=== PATIENT | male | born 1940 | race Caucasian/White ===

== ENCOUNTER 2022-06-08 07:18 | Observation (INO) ==
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
[~2022-06-08 07:18] MED LIST: LR 15ML/HR IV SCH; SUGAMMADEX SODIUM 200 MG/2 ML VIAL IV ONE; ceFAZolin 2000MG 2,000 MG/15 ML SYR IV SCH
[2022-06-08] MEDS ORDERED: DEXAMETHASONE SOD INJ 4 MG/ML VIAL ONE (07:36)
[2022-06-08] MEDS ORDERED: ONDANSETRON INJ 2 MG/ML 2 ML VIAL ONE (07:36)
[2022-06-08] MEDS ORDERED: fentaNYL citrate 100 MCG/2 ML VIAL ONE ×2 (07:36→09:48)
[2022-06-08] MEDS ORDERED: ROCURONIUM BROMIDE 10 MG/ML 5 ML VIAL IV ONE ×3 (07:36→10:15)
[2022-06-08] MEDS ORDERED: PROPOFOL IV EMULSION 10 MG/ML 20 ML VIAL IV ONE (07:36)
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
[2022-06-08] MEDS ORDERED: ATROPINE SULFATE 0.1 MG/ML 10ML SYR IV PRN (08:06)
[2022-06-08] MEDS ORDERED: ONDANSETRON INJ 2 MG/ML 2 ML VIAL IV PRN ×2 (08:06→12:18)
[2022-06-08] MEDS ORDERED: ePHEDrine sulfate 50 MG/ML AMP IV PRN (08:06)
[2022-06-08] MEDS ORDERED: BUPIVACAINE/EPINEPHRINE 0.5% MPF 1:200,000 30 ML VIAL ONE (08:20)
[2022-06-08] MEDS ORDERED: PHENYLEPHRINE HCL 10 MG/ML VIAL ONE (08:50)
[2022-06-08] MEDS: fentaNYL citrate 100 MCG/2 ML VIAL IV PRN ×4 (10:37→10:52)
[2022-06-08] MEDS ORDERED: HYDROmorphone INJ 1 MG/ML SYRINGE IV PRN (10:52)
[2022-06-08] MEDS ORDERED: ACETAMINOPHEN 1,000 MG/100 ML VIAL IV STA (10:52)
[2022-06-08] MEDS ORDERED: KETOROLAC 30 MG/ML VIAL IV PRN (10:52)
[2022-06-08] MEDS ORDERED: PROMETHAZINE HCL 6.25 MG in SODIUM CHLORIDE 0.9% 50 ML IV PRN (10:54)
[2022-06-08] MEDS ORDERED: ACETAMINOPHEN 1000 MG/100 ML IV IV ONE (10:57)
[2022-06-08] MEDS ORDERED: SODIUM CHLORIDE 0.9% 50 ML BAG ONE (10:57)
[2022-06-08] MEDS ORDERED: PROMETHAZINE HCL INJ 25 MG/ML 1 ML VIAL ONE (10:57)
[2022-06-08] MEDS ORDERED: KETOROLAC 30 MG/ML VIAL ONE (10:58)
--- NOTE | 2022-06-08 10:59 | Operative Report ---
PG Post Operative Report Pre & Post Diagnosis Operation Date: 06/08/22 08:45 Pre-Op Diagnosis: Recurrent Incisional Hernia Post-Op Diagnosis: Recurrent Incisional Hernia ;adhesions I identified the patient and participated in the time-out.: Yes Procedure Operation Date: 06/08/22 08:45 Actual Procedures p Laparoscopic Recurrent Incisional Hernia Repair with Mesh(Not Applicable);extensive enterolysis - Aj Chappell DO Surgeon Aj Chappell DO Database Designer alan Caraballo Estimated Blood Loss 10 Findings Consistent with Post-Op Diagnosis Specimens none Description of Procedure After informed consent was obtained the patient was taken to the operating room and placed in supine position. After successful intubation the abdomen was sterilely prepped and draped in usual fashion. I began with a left upper quadrant incision with an 11 blade scalpel. This was carried down through the soft tissue using cautery. Anterior fascia was opened using cautery and two #0 Vicryl stay sutures were placed. Peritoneum was elevated with hemostats and incised under direct vision using a Metzenbaum scissor. Finger sweep was performed. A 12 mm [place] trocar was placed and the abdomen insufflated to 18 mmHg. Laparoscope was inserted and the abdomen examined 360 degrees. There were a lot of adhesions on his midline incision including the region of the hernia. I ended up placing a left lower quadrant 5 mm trocar a left mid abdominal 5 mm trocar a right upper quadrant 5 mm trocar and a right mid abdominal 5 mm trocar under direct vision. The majority of the case was spent tediously taking down adhesions laparoscopically involving primarily small bowel. We used the harmonic scalpel for some of the omental adhesions and then primarily blunt dissection with small amounts of sharp scissor lysis to take the bowel off of the prior mesh. Eventually we were able to get all of the adhesions down. The recurrent hernia was approximately 3 cm in diameter. After reducing the contents we rolled a 10 cm surgimesh rolled it and inserted it through the camera port site. A small incision was made directly over the central portion of the hernia and a fascial closure device advanced through it. The central Prolene stitches on the circular mesh were grasped and used to pull the mesh up to the undersurface of the fascia. This overlapped the hernia defect for several centimeters in all directions. We secured the mesh using a Reliatack device with the long tacks. We did have to use several pro tacks to go through the areas where the new mesh and old mesh overlapped. We tied the central Prolene stitch as well. The mesh laid nice and flat and tension-free and the repair looked good. No other abnormalities were seen. I did run the bowel and paid special attention to the area where we had taken down adhesions. There was some small serosal abrasions but I did not see any evidence of a through and through enterotomy. All the trochars were removed and the abdomen desufflated. The fascia of the camera port was closed using 0 Vicryl in a running fashion. It was also closed with 3-0 Vicryl and 4-0 Monocryl. All the small incisions were closed using 4-0 Monocryl. Arcane with epinephrine was injected around the incision for postoperative analgesia and skin glue used as a dressing. Patient was awakened extubated and transferred recovery in stable condition. My physician architectural administrative assistant was present through the entire case. She was instrumental in assisting with running the camera as well as helping with mesh placement wound closure and dressing placement. I attest to the content of the Intraoperative Record and any orders documented therein. Any exceptions are noted below.
--- NOTE | 2022-06-08 11:49 | Anesthesiology Progress Note ---
Date of Service June 08, 2022 Anesthesia Post Procedure Vital Signs Vital Signs: Temp Pulse Pulse Resp BP Pulse Ox O2 Del Method 06/08/22 11:15 104 H 19 133/67 97 Nasal Cannula 06/08/22 11:05 103 H 19 126/72 95 Nasal Cannula 06/08/22 10:55 105 H 21 130/92 96 Oxymask 06/08/22 11:35 97.0 F L 101 H 18 94/70 L 95 Nasal Cannula 06/08/22 11:25 99 H 19 116/48 L 94 Nasal Cannula 06/08/22 10:45 105 H 19 137/87 98 Oxymask 06/08/22 10:36 96.8 F L 98 H 23 145/84 H 93 Oxymask 06/08/22 07:48 98.2 F 86 21 139/87 94 Room Air O2 Flow Rate 06/08/22 11:15 4 06/08/22 11:05 4 06/08/22 10:55 12 06/08/22 11:35 4 06/08/22 11:25 4 06/08/22 10:45 12 06/08/22 10:36 12 06/08/22 07:48 Transfer of Care Handoff Completed per policy Notes Mental Status: alert / awake / arousable and participated in evaluation Patient Amnestic to Procedure: Yes Nausea / Vomiting: improving with treatment Pain: adequately controlled and improving with treatment Airway Patency, RR, SpO2: stable & adequate BP & HR: stable & adequate Hydration State: stable & adequate Anesthetic Complications: no major complications apparent and Pt Satisfied with anesthetic care Notes: Patient complaining of pain, given fentanyl, ketorolac and tylenol as well as 0.5 of dilaudid, patient able to sleep soundly, however when wakes up asks for "help". unable to describe pain or rate pain just states it "hurts". Patient appropriate for signout of Phase 1
[2022-06-08] MEDS: LACTATED RINGER'S 1,000 ML IV SCH (12:00)
[2022-06-08] MEDS ORDERED: HYDROCODONE/ACETAMOPHEN 5/325MG TAB PO PRN (12:18)
[2022-06-08] MEDS ORDERED: ACETAMINOPHEN 325 MG TAB PO PRN (12:18)
[2022-06-08] MEDS: HYDROCODONE/ACETAMOPHEN 5/325MG TAB PO PRN (16:28)
[2022-06-08] MEDS: ONDANSETRON INJ 2 MG/ML 2 ML VIAL IV PRN ×2 (19:08→21:57)
[2022-06-08] MEDS: TAMSULOSIN HCL 0.4 MG CAP PO SCH (20:00)
[2022-06-08] MEDS: HYDROmorphone INJ 0.5 MG/0.5 ML SYR IV PRN (21:58)
[2022-06-08 22:41] LABS: Basophils # (auto) 0.02 K/uL (0-0.2); Basophils % (auto) 0.2 %; Hematocrit (blood only) 36.2 % (40.1-51.0); Hemoglobin 12.3 g/dl (14.0-18.0); Immature Granulocytes # (auto) 0.04 K/uL (0.00-0.02); Immature Granulocytes % (auto) 0.3 %; Lymphocytes % (auto) 4.4 %; Mean Corpuscular Hemoglobin 31.9 pg (25.0-34.0); Mean Platelet Volume 9.4 fL (9.4-12.4); Neutrophils # (auto) 10.09 K/uL (1.4-6.5); Neutrophils % (auto) 88.1 %; Platelet Count 280 K/uL (130-400); RDW Coefficient of Variation 12.8 % (11.5-14.5); RDW Standard Deviation 43.8 fL (36.4-46.3); Red Blood Count 3.85 M/uL (4.63-6.08); White Blood Count 11.45 K/ul (4.8-10.8)
[2022-06-08 22:54] LABS: Potassium 4.3 mmol/L (3.5-5.1)
[2022-06-08 23:00] LABS: BUN Creatinine Ratio 22.2 (10-20); Creatinine Clr Calc Pharmacy 88.3 ml/min; Est GFR (African American) 101.4 ml/min; Est GFR (Non-African American) 87.5 ml/min
--- NOTE | 2022-06-08 23:09 | Communication Note ---
Date of Service: June 08, 2022 Earlier today this patient underwent a laparoscopic recurrent incisional hernia repair with mesh and extensive enterolysis of adhesions by Dr. Chappell. I was called by RN that patient had approximate 250 cc emesis of what appeared to be somewhat bloody emesis. Patient received Zofran and was complaining of 10 out of 10 abdominal pain. This call was placed by RN at approximately 10:01 PM. Initial orders were placed for a KUB and labs and I arrived at the bedside to evaluate the patient within 5 minutes. KUB was reviewed and showed dilated loops of bowel and small bowel along with a large gastric bubble. There did not appear to be any discrete free air. These findings were concerning for postoperative ileus. Stat laboratories were drawn where her CBC revealed white blood cell count was 11.45. Hemoglobin and hematocrit were 12.3 and 36.2 with a normal platelet count. Chemistry profile showed sodium, potassium, BUN, creatinine were all normal. Patient's vitals were reviewed and his blood pressure is 155/86 with a heart rate of 90. Respirations were 19 and nonlabored and he was afebrile. Pulse ox is 95% on 3 L. On exam the patient's abdomen was noted to be mildly to moderately distended. His abdomen was slightly tympanic to percussion. Bowel sounds were hypoactive. All of his incisions were clean, dry, and intact without any drainage. The patient did have appropriate tenderness near his surgical incisions. The patient's emesis was examined and appeared to be black/with a red tinge. Due to these events as noted a KUB was performed along with labs as noted above. In addition due to the concern for potential bloody emesis the patient was administered Protonix. He was previously taking aspirin which was discontinued. I suspect the patient may have an element of a postoperative ileus. We will continue to treat him symptomatically. If he continues to have further emesis we may need to consider placing an NG tube. I discussed the above with my attending physician Dr. Montoya who agrees with the above plan. If patient shows any further clinical deterioration additional measures will be taken but we will monitor him closely for the present time
[2022-06-08] MEDS: PANTOprazole 40 MG in SYRINGE 0 ML IV SCH (23:18)
[2022-06-09] MEDS: HYDROmorphone INJ 0.5 MG/0.5 ML SYR IV PRN ×2 (00:08→07:43)
[2022-06-09] MEDS: LACTATED RINGER'S 1,000 ML IV SCH (00:22)
--- NOTE | 2022-06-09 07:26 | XRay Report ---
XR KUB/Abdomen 1 view CLINICAL HISTORY: abdominal pain TECHNIQUE: 1 view of the abdomen was obtained. Comparison: Comparison is made to abdomen radiograph 05/22/2022 FINDINGS: Hernia repair mesh is seen. Degenerative changes are seen in the visualized skeleton. Interval increa sed gaseous distention of multiple loops of small bowel. A moderate amount of stool is noted within t he large bowel. IMPRESSION: Interval increase in distention of a few loops of small bowel which may be physiologic or represent m ild ileus. ACT 112: Negative or not required by law. Electronically signed by: Carlos Payton M.D. 06/09/2022 7:25 AM
[2022-06-09] MEDS: PANTOprazole 40 MG in SYRINGE 0 ML IV SCH ×2 (07:44→20:30)
[2022-06-09] MEDS: FLUoxetine HCL 20 MG CAP PO SCH (07:44)
[2022-06-09 07:58] LABS: Basophils # (auto) 0.01 K/uL (0-0.2); Basophils % (auto) 0.1 %; Eosinophils # (auto) 0.01 K/uL (0-0.50); Eosinophils % (auto) 0.1 %; Hematocrit (blood only) 34.9 % (40.1-51.0); Hemoglobin 11.6 g/dl (14.0-18.0); Immature Granulocytes # (auto) 0.06 K/uL (0.00-0.02); Immature Granulocytes % (auto) 0.6 %; Lymphocytes # (auto) 0.61 K/uL (1.2-3.4); Mean Corpuscular Hemoglobin 31.8 pg (25.0-34.0); Mean Corpuscular Hgb Conc 33.2 g/dL (32.0-36.0); Mean Corpuscular Volume 95.6 fL (80.0-100.0); Mean Platelet Volume 9.5 fL (9.4-12.4); Monocytes # (auto) 1.03 K/uL (0.24-0.82); Monocytes % (auto) 10.1 %; Neutrophils # (auto) 8.43 K/uL (1.4-6.5); Neutrophils % (auto) 83.1 %; Platelet Count 269 K/uL (130-400); RDW Coefficient of Variation 12.9 % (11.5-14.5); RDW Standard Deviation 45.5 fL (36.4-46.3); Red Blood Count 3.65 M/uL (4.63-6.08); White Blood Count 10.15 K/ul (4.8-10.8)
[2022-06-09] MEDS ORDERED: ASPIRIN 81 MG ECTAB PO SCH (09:00)
[2022-06-09 10:03] LABS: BUN Creatinine Ratio 19.7 (10-20); Calcium 9.1 mg/dl (8.5-10.1); Creatinine Clr Calc Pharmacy 83.7 ml/min; Est GFR (African American) 99.2 ml/min; Est GFR (Non-African American) 85.6 ml/min; Potassium 4.5 mmol/L (3.5-5.1)
--- NOTE | 2022-06-09 13:55 | Surgery Progress Note ---
Date of Service June 09, 2022 Assessment & Plan (1) History of incisional hernia repair: Plan: Postoperative day #1. Doing well. Will increase his diet today. Possible discharge tomorrow if he continues to do well. Dr. Mcknight covering for the weekend. Admission and Anticipated Discharge Date Admission Date: June 08, 2022 Subjective Patient seen. Feeling much better today. Tolerating his liquid diet. His pain and nausea are much improved Physical Exam Physical Exam: Alert. No acute distress Not ill-appearing Abdomen is soft with expected tenderness. His incisions look good. Results & Data ([facility]) Vital Signs (Past 12 Hours) Vital Signs Temp Pulse Resp BP Pulse Ox O2 Del Method O2 Flow Rate 06/09/22 07:58 36.7 C 85 16 114/71 91 Room Air 06/09/22 07:58 36.7 C 85 16 114/71 91 Room Air 06/09/22 02:00 36.7 C 87 18 152/78 H 95 Nasal Cannula 3 PG Care Time/CCT Total # of Minutes Spent Total Time Spent with Patient: Total time spent is greater than 50% in coordination of care (as documented) at patient's floor/unit and/or counseling patient: Coding Level of Care Code 97853 Post Operative Follow-Up Diagnoses History of incisional hernia repair Z98.890; Z87.19
[2022-06-09] MEDS: ATORVASTATIN 10 MG TAB PO SCH (20:29)
[2022-06-09] MEDS: TAMSULOSIN HCL 0.4 MG CAP PO SCH (20:30)
[2022-06-09 22:22] VITALS: TEMP 97.7
[2022-06-10 08:12] VITALS: BP 122/74; PULSE 89; O2SAT 96
[2022-06-10] MEDS: HYDROCODONE/ACETAMOPHEN 5/325MG TAB PO PRN (08:22)
[2022-06-10] MEDS: FLUoxetine HCL 20 MG CAP PO SCH (08:24)
[2022-06-10] MEDS: ATORVASTATIN 10 MG TAB PO SCH (08:24)
[2022-06-10] MEDS: PANTOprazole 40 MG in SYRINGE 0 ML IV SCH (08:24)
--- NOTE | 2022-06-10 13:18 | Surgery Progress Note ---
Date of Service June 10, 2022 Assessment & Plan (1) History of incisional hernia repair: Plan: POD #2 incisional hernia repair with extensive MARCOS with Dr. Chappell. Ed is doing well. His pain is controlled. He is tolerating a low fiber diet. He feels that he is ready for discharge. Discharge instructions reviewed with patient by Dr. Mcknight. Return precautions reviewed. Ed is aware that he is to continue to wear his abdominal binder. He is to follow-up with Dr. Chappell in the next 1-2 weeks. Discharge order placed. Patient seen and examined with Dr. Mcknight. Admission and Anticipated Discharge Date Admission Date: June 08, 2022 Supervising Physician Co-Signing Physician Notes Patient seen examined, agree with above. POD #2 lap MARCOS and ventral hernia repair, doing well. Advance diet, DC to home, follow-up with Dr. Chappell as scheduled. Wound care instructions, activity restrictions, return precautions given. Subjective Ed is resting comfortably in bed with family member at bedside. He is feeling very good. He denies pain and is tolerating a low fiber diet. Review of Systems Constitutional: no fever and no chills Respiratory: no cough, no chest congestion and no dyspnea Gastrointestinal: no abdominal pain, no nausea and no vomiting Physical Exam Constitutional: WD/WN, vitals as above Respiratory: normal respiratory effort; no respiratory distress and no labored breathing Gastrointestinal (Abdomen): Abdominal incisions are clean, dry, intact with Dermabond in place. No signs of active bleeding or infection on exam. Abdominal binder reattached. Results & Data ([facility]) Vital Signs (Past 12 Hours) Vital Signs Temp Pulse Resp BP Pulse Ox O2 Del Method 06/10/22 07:50 36.5 C 89 18 122/74 96 Room Air PG Care Time/CCT Total # of Minutes Spent Total Time Spent with Patient: Total time spent is greater than 50% in coordination of care (as documented) at patient's floor/unit and/or counseling patient: Coding Level of Care Code 20382 Post Operative Follow-Up Diagnoses History of incisional hernia repair Z98.890; Z87.19
--- NOTE | 2022-06-13 08:28 | Discharge Summary ---
Date of Service June 10, 2022 Admission HPI Per Admitting Provider Roberto is here for repair of an incisional hernia. 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 He has developed an incisional hernia at the inferior pole. There is been no changes to his health history since I had seen him last. Principal Diagnosis incisional hernia repair Discharge Exam awake/alert, no distress Gastrointestinal (Abdomen) Inspection/Auscultation: + abdominal surgical incision (c/d/i with skin glue) Percussion/Palpation: abdomen soft Discharge Data Allergies Allergy/AdvReac Type Severity Reaction Status Date / Time morphine Allergy Intermediate HIVES Verified 06/08/22 07:44 tobramycin Allergy Intermediate HIVES Verified 06/08/22 07:44 midazolam Allergy Mild RASH Verified 06/08/22 07:44 oxycodone Allergy Mild RASH Verified 06/08/22 07:44 codeine Allergy Unknown unsure of Verified 06/08/22 07:44 reaction Procedures Performed Operation Date: 06/08/22 08:45 Actual Procedures p Laparoscopic Recurrent Incisional Hernia Repair with Mesh(Not Applicable) - Aj Chappell, DO Hospital Course (1) History of incisional hernia repair: This is an 81yM who presented to the [facility] on 1// for an elective procedure with Dr. Chappell. The patient underwent a laparoscopy with extensive lysis of adhesions, including a ventral hernia repair with mesh. The patient tolerated the procedure well, see op note for full details. Given the extensive lysis of adhesions the patient was admitted under observation. He was started on a clear liquid diet and pain controlled with prn medication. In the evening patient did have a small bout of emesis which was managed with prn medications. On POD#1 the patient was doing well and diet advanced as tolerated. No further bouts of nausea/emesis. Activity and pulmonary toilet were encouraged. Pain controlled on prn medication. On POD#2 the patient continued to do well and was discharged to home. He was instructed to continue to wear his abdominal binder and to follow up in clinic with Dr. Chappell within 2 weeks. Total Time Total Time Spent Total Time Spent (In Minutes): 10 Discharge Plan Discharge Items Patient Disposition: Home - Self-Care Reason For Visit: Recurrent Incisional Hernia Discharge Diagnosis: incisional hernia repair Activity: Per Instructions section Lifting: No more than 10 pounds Bathing Comment: may shower starting 06/09/22; no soaking in tubs/pools Exercise/Sports: Wait until after follow-up appointment Driving/Machine Use: no driving while taking any narcotics for pain Non-emergency contact: Surgeon Call non-emergency contact if: you have any medication questions, your symptoms worsen, your pain is not controlled, your pain is concerning for you, you have a fever, your temperature is above 101.5, your wound has increased redness, your wound has increased drainage and your wound pain has increased Follow-up/Referrals: Aj Chappell DO [Surgeon] - (Please call to schedule follow up in clinic within 2 weeks) Brigitte Lance DO [Primary Care Provider] - Diet: Regular Addtl Attending Provider Instructions: Please continue to wear your abdominal binder until follow up with Dr. Chappell. You may remove it for periods of time to take a break as needed and shower. Pending Studies at Discharge: No Stand-Alone Forms: My [facility] Medications and DC Order Prescriptions: New hydrocodone-acetaminophen 5-325 mg tablet 1 - 2 tab PO .q4h- q6h PRN (Reason: pain, for initial therapy, max 6 tabs per day ) Qty: 15 0RF Continued atorvastatin 10 mg tablet 10 mg PO QAM aspirin 81 mg Tablet,Delayed Release (Dr/Ec) 81 mg PO QAM Rx Instructions: CURRENTLY ON HOLD FOR SURGERY multivitamin [Multiple Vitamins] Tablet 1 tab PO QAM [id number] [Citracal-D3 Maximum Plus] 325 mg-12.5 mcg -2.75 mg Tablet 2 tab PO QAM tamsulosin 0.4 mg capsule 0.4 mg PO HS Qty: 30 0RF fluoxetine [Prozac] 40 mg capsule 40 mg PO QAM ondansetron 4 mg tablet,disintegrating 4 mg PO Q6H PRN (Reason: nausea and vomiting) Qty: 14 0RF Discharge Orders: Discharge Order (Routine); Ordered 06/10/22 Ordered By: Kayleen Mckeon/Other Patient Handouts: After Laparoscopic Hernia Repair Admission Data Admit Date/Time: 06/08/22 10:40 Attending Provider: Aj Chappell Admit Provider: Aj Chappell Primary Care Provider: Grine,Brigitte M Other Interventions: Discharge Summary Assessment (RN) Last Done: 06/10/22 13:32 Coding Level of Care Code HOSP INP/OBS DISCH 30 MIN/LESS Diagnoses History of incisional hernia repair Z98.890; Z87.19
== END 2022-06-10 14:01 | disposition home or self-care (01) ==
LOC: 3N 07:18 → ASU 07:18 → 3N 18:49
DX: Z87.891 Personal history of nicotine dependence; Z88.8 Allergy status to other drugs, medicaments and biological substances; Z79.82 Long term (current) use of aspirin; K43.2 Incisional hernia without obstruction or gangrene; Z79.899 Other long term (current) drug therapy; Z88.5 Allergy status to narcotic agent; Z88.1 Allergy status to other antibiotic agents

== ENCOUNTER 2022-06-25 08:40 | Observation (INO) ==
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
[2022-06-25] MEDS ORDERED: SODIUM CHLORIDE 0.9% 1000ML 1,000 ML IV SCH (09:00)
[2022-06-25] MEDS ORDERED: ONDANSETRON INJ 2 MG/ML 2 ML VIAL IV STA (09:32)
[2022-06-25 09:43] LABS: Basophils # (auto) 0.05 K/uL (0-0.2); Basophils % (auto) 0.7 %; Eosinophils # (auto) 0.23 K/uL (0-0.50); Eosinophils % (auto) 3.1 %; Hemoglobin 13.1 g/dl (14.0-18.0); Immature Granulocytes # (auto) 0.03 K/uL (0.01-0.20); Immature Granulocytes % (auto) 0.4 %; Mean Corpuscular Hemoglobin 31.9 pg (25.0-34.0); Mean Corpuscular Hgb Conc 33.6 g/dL (32.0-36.0); Mean Corpuscular Volume 94.9 fL (80.0-100.0); Mean Platelet Volume 9.3 fL (9.4-12.4); Monocytes # (auto) 0.71 K/uL (0.11-0.59); Monocytes % (auto) 9.4 %; Neutrophils # (auto) 5.61 K/uL (1.40-6.50); Neutrophils % (auto) 74.4 %; Platelet Count 306 K/uL (130-400); RDW Coefficient of Variation 13.1 % (11.5-14.5); RDW Standard Deviation 45.7 fL (36.4-46.3); Red Blood Count 4.11 M/uL (4.70-6.10); White Blood Count 7.53 K/ul (4.8-10.8)
[2022-06-25 09:53] LABS: INR 1.1 (0.9-1.1); Prothrombin Time 11.3 Seconds (9.0-12.0)
--- NOTE | 2022-06-25 10:01 | CT Scan Report ---
CT SCAN OF THE BRAIN WITHOUT IV CONTRAST CLINICAL HISTORY: Syncope. Fall. COMPARISON STUDY: CT of the brain dated 05/22/2022. TECHNIQUE: Unenhanced axial CT scan of the brain is performed from the vertex to the skull base. A do se lowering technique was utilized adhering to the principles of ALARA. CT DOSE: 614.27 mGy.cm FINDINGS: Brain parenchyma: There is age-related involutional change noting moderate subcortical and periventri cular microangiopathic disease. There is no hemorrhage, mass effect, or evidence of acute territorial ischemia by CT criteria. There is a chronic infarct in the right basal ganglia. Mendoza-white matter di fferentiation is preserved. No extra-axial fluid collection is seen. Ventricles, sulci, cisterns: Prominent secondary to involutional change. Intracranial vasculature: There is atherosclerotic calcification of the cavernous carotid and vertebr al arteries. Calvarium: The skeletal structures are osteopenic. No depressed calvarial fracture is seen. Sinuses and mastoids: There is trace mucosal thickening within the maxillary antra. Mild mucosal thic kening is seen in the right frontal sinus and ethmoid sinuses. The mastoid air cells are well pneumat ized. Orbits: The bony orbits are grossly intact. There are bilateral ocular lens implants. IMPRESSION: There is no hemorrhage, mass effect, or evidence of acute territorial ischemia by CT alva meraz. ACT 112: Negative or not required by law. Electronically signed by: Shane Anderson M.D. 06/25/2022 9:59 AM
[2022-06-25 10:06] LABS: Albumin Globulin Ratio 1.3 (0.9-2); Albumin Level 3.9 gm/dl (3.4-5.0); Bilirubin,Total 0.8 mg/dl (0.2-1.0); Calcium 9.6 mg/dl (8.5-10.1); Creatinine Clr Calc Pharmacy 84.8 ml/min; Est GFR (African American) 99.7 ml/min; Globulin 2.9 gm/dl (2.5-4.0); Magnesium 2.2 mg/dl (1.7-2.4); Potassium 3.9 mmol/L (3.5-5.1); Total Protein 6.8 gm/dl (6.0-8.3)
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
--- NOTE | 2022-06-25 10:48 | XRay Report ---
AP CHEST WITH ABDOMINAL SERIES CLINICAL HISTORY: Cough. Vomiting. Generalized abdominal pain FINDINGS: An AP upright chest radiograph is compared to study dated 05/22/2022. The heart is enlarged noting athe rosclerotic calcification of the thoracic. The pulmonary vascular is congested. Chronic interstitial thickening similar to previous. There is mild chronic elevation of the right hemidiaphragm. The lungs and pleural spaces are clear. No pneumothorax is seen. The skeletal structures are osteopenic. The b yinka thorax is grossly intact. Supine and decubitus abdominal radiographs are compared to study dated 06/08/2022. Correlation is made with abdominal CT dated 03/31/2022. Mesh material projects over the central abdomen. There is a nono bstructed abdominal bowel gas pattern. No evidence of intraperitoneal free air is seen. There are no abnormal abdominal calcifications. Small phleboliths are seen in the pelvis. The lumbosacral spine an d bony pelvis appear intact. There is moderate lumbosacral spondylosis. IMPRESSION: 1. Cardiomegaly with no active disease in the chest. 2. Nonobstructed abdominal bowel gas pattern. ACT 112: Negative or not required by law. Electronically signed by: Shane Anderson M.D. 06/25/2022 10:47 AM
--- NOTE | 2022-06-25 10:48 | Electrocardiogram Report ---
Test Reason : Blood Pressure : / mmHG Vent. Rate : 092 BPM Atrial Rate : 092 BPM P-R Int : 126 ms QRS Dur : 080 ms QT Int : 366 ms P-R-T Axes : - 022 degrees QTc Int : 452 ms Poor data quality, interpretation may be adversely affected Normal sinus rhythm Low voltage QRS Poor R wave progression, consider anterior AR vs. lead placement vs. LVH Abnormal ECG When compared with ECG of 22-MAY-2022 09:38, Minimal criteria for Anterior infarct are now Present No significant change was found Confirmed by Mukesh Nolasco ([id number]) on 06/25/2022 10:48:16 AM Referred By: Confirmed By:Mukesh Nolasco
[2022-06-25] MEDS ORDERED: ACETAMINOPHEN 325 MG TAB PO PRN (11:46)
[2022-06-25 12:57] LABS: Vitamin B12 359 pg/ml (180-914)
[2022-06-25] MEDS: THIAMINE HCL 100 MG in SYRINGE 9 ML IV SCH (13:04)
[2022-06-25] MEDS: PANTOprazole 40 MG TAB PO SCH (13:04)
[2022-06-25] MEDS: FOLIC ACID 1 MG TAB PO SCH (13:04)
[2022-06-25] MEDS: ASPIRIN 81 MG ECTAB PO SCH (13:04)
--- NOTE | 2022-06-25 13:07 | Magnetic Resonance Report ---
MRI OF THE BRAIN WITHOUT IV CONTRAST CLINICAL HISTORY: Syncope. Fall. Change in mental status. COMPARISON STUDY: CT of the brain dated 06/25/2022. TECHNIQUE: MRI of the brain was performed utilizing various T1 and T2-weighted sequences in the axial , sagittal, and coronal planes. IV contrast was not administered for this examination. FINDINGS: Brain parenchyma: A chronic infarct is again seen in the right basal ganglia. There is age-related in volutional change noting moderate subcortical and periventricular microangiopathic disease. There is no hemorrhage or mass effect. There is no restricted diffusion to suggest acute ischemia. Mendoza-white matter differentiation is preserved. No extra-axial fluid collection is seen. The cerebellar tonsils are normal in configuration. Ventricles, sulci, and cisterns: Prominent secondary to involutional change. Pituitary and sella: Unremarkable. Intracranial vasculature: Normal flow voids are maintained at the skull base. Orbits: The bony orbits are grossly intact. Orbital contents are normal in appearance noting bilatera l ocular lens implants. Sinuses and mastoids: There is moderate mucosal thickening within the right maxillary antrum and the ethmoid sinuses. The mastoid air cells are clear. Calvarium: Unremarkable. Cervical cord: Partially visualized cervical spinal cord is normal in morphology and signal intensity . IMPRESSION: No acute intracranial abnormality. ACT 112: Negative or not required by law. Electronically signed by: Shane Anderson M.D. 06/25/2022 1:05 PM
[2022-06-25] MEDS: ONDANSETRON INJ 2 MG/ML 2 ML VIAL IV PRN ×2 (16:04→22:58)
[2022-06-25] MEDS: TAMSULOSIN HCL 0.4 MG CAP PO SCH (20:24)
[2022-06-26 03:59] LABS: Appearance Urine Cloudy (Clear); Bacteria Urine Automated Negative (Negative); Bilirubin Urine Negative (Negative); Blood Urine 3+ (Negative); Color Urine Yellow; Glucose Urine UA Negative (Negative); Ketones Urine Negative (Negative); Leukocyte Esterase Urine Trace (Negative); Nitrite Urine Negative (Negative); Protein Urine Trace (Negative); Specific Gravity Urine 1.019 (1.000-1.030); Urobilinogen Urine Negative (Negative)
[2022-06-26 07:35] LABS: Basophils # (auto) 0.04 K/uL (0-0.2); Basophils % (auto) 0.6 %; Eosinophils # (auto) 0.28 K/uL (0-0.50); Eosinophils % (auto) 4.2 %; Hematocrit (blood only) 34.6 % (42.0-52.0); Hemoglobin 11.8 g/dl (14.0-18.0); Immature Granulocytes # (auto) 0.03 K/uL (0.01-0.20); Immature Granulocytes % (auto) 0.4 %; Lymphocytes # (auto) 0.77 K/uL (1.2-3.4); Lymphocytes % (auto) 11.5 %; Mean Corpuscular Hemoglobin 32.5 pg (25.0-34.0); Mean Corpuscular Hgb Conc 34.1 g/dL (32.0-36.0); Mean Corpuscular Volume 95.3 fL (80.0-100.0); Mean Platelet Volume 9.6 fL (9.4-12.4); Monocytes # (auto) 0.64 K/uL (0.11-0.59); Monocytes % (auto) 9.6 %; Neutrophils # (auto) 4.94 K/uL (1.40-6.50); Neutrophils % (auto) 73.7 %; Platelet Count 264 K/uL (130-400); RDW Coefficient of Variation 13.2 % (11.5-14.5); RDW Standard Deviation 46.5 fL (36.4-46.3); Red Blood Count 3.63 M/uL (4.70-6.10)
[2022-06-26] MEDS: PANTOprazole 40 MG TAB PO SCH (08:01)
[2022-06-26 08:02] LABS: BUN Creatinine Ratio 18.2 (10-20); Calcium 9.3 mg/dl (8.5-10.1); Chol HDL Ratio 2.5 (0-5); Creatinine Clr Calc Pharmacy 82.6 ml/min; Est GFR (African American) 98.6 ml/min; Est GFR (Non-African American) 85.1 ml/min; Potassium 4.1 mmol/L (3.5-5.1)
[2022-06-26] MEDS: ASPIRIN 81 MG ECTAB PO SCH (08:02)
[2022-06-26] MEDS: ATORVASTATIN 10 MG TAB PO SCH (08:02)
[2022-06-26] MEDS: FOLIC ACID 1 MG TAB PO SCH (08:02)
[2022-06-26] MEDS: FLUoxetine HCL 20 MG CAP PO SCH (08:02)
[2022-06-26] MEDS: THIAMINE HCL 100 MG in SYRINGE 9 ML IV SCH (08:03)
--- NOTE | 2022-06-26 08:47 | XCELERA ---
[id number]
--- NOTE | 2022-06-26 09:08 | Ultrasound Report ---
US carotid doppler BI CLINICAL HISTORY: 81 years-old Male with dysarthria, hx cva. Acute strokelike symptoms COMPARISON: Brain MRI 06/25/2022 TECHNIQUE: Multiple real time sonographic images of the carotid bifurcations were obtained assessing alex scale, color Doppler and spectral wave form appearance FINDINGS: RIGHT CAROTID: The peak systolic velocity measured within the right ICA is 139 cm/sec. The end marc tolic velocity measured 14 cm/sec. The ICA to CCA ratio measured 1.6 which correlates with a stenosi s of 50-69%. Mild atherosclerotic plaque of the right carotid bulb. LEFT CAROTID: The peak systolic velocity measured within the left ICA is 164 cm/sec. The end diasto lic velocity measured 29 cm/sec. The ICA to CCA ratio measured 1.6 which correlates with a stenosis o f 50-69%. There is at least moderate atherosclerotic plaque of the left carotid bulb and proximal lef t ICA. There is normal antegrade vertebral flow bilaterally. IMPRESSION: 1. Atherosclerosis of the carotid bulbs and proximal cervical segments of the internal carotid arter ies results in 50-69% stenosis bilaterally. 2. Normal antegrade vertebral flow bilaterally. ACT 112: Negative or not required by law. The above report was generated using voice recognition software. It may contain grammatical, syntax o r spelling errors. Electronically signed by: Bryan Woodard M.D. 06/26/2022 9:07 AM
[2022-06-26] MEDS: MIDODRINE HCL 2.5 MG TAB PO SCH ×2 (13:34→17:13)
--- NOTE | 2022-06-26 14:44 | Hospitalist Progress Note ---
Date of Service June 26, 2022 Assessment & Plan (1) Syncope: Plan: Probably orthostatic etiology. No evidence of acute CVA seen on head CT scan or brain MRI. Midodrine has been ordered. No significant arrhythmia seen on telemetry. Recent incisional hernia repair 2 weeks ago but I doubt if this is contributing to current symptoms. Noncritical carotid disease noted on Doppler study. No evidence of acute coronary syndrome. (2) Nausea & vomiting: Plan: Protonix has been started. No complaints of nausea or vomiting today. KUB negative for obstruction (3) History of incisional hernia repair: Plan: S/p incisional hernia repair with Dr. Chappell with discharge 06/13/2022. Unremarkable surgical sites. (4) Anxiety and depression: Plan: Stable. Continue Prozac (5) Hx of gastric ulcer: Plan: PPI therapy (6) AA (alcohol abuse): Plan: Past history of. Nothing acute (7) Dyslipidemia: Plan: Continue statin therapy (8) Stroke syndrome: Plan: Acute CVA has been ruled out. DVT prophylaxis: SCDs, Lovenox Disposition: Hopefully home tomorrow, June 27 Admission and Anticipated Discharge Date Admission Date: June 25, 2022 Subjective Alert and oriented. Asymptomatic. Daughter is at the bedside. Head CT scan and brain MRI scan negative for acute CVA. Carotid Dopplers revealed 50 to 69% bilateral stenotic disease. He did have orthostatic hypotension while in therapy today but was asymptomatic. Midodrine has been ordered. Hopefully he w ill be stable enough for discharge to home tomorrow, June 27 Review of Systems Review of Systems: Constitutional-no fever or chills ENT-no blurred vision, no double vision, no epistaxis, no sore throat Respiratory-no cough, no wheezing, no shortness of breath Cardiac-no palpitations, no chest pain, no syncope GI-no nausea, vomiting, diarrhea, melena, hematochezia -no urinary retention, no urinary incontinence, no dysuria, no hematuria Musculoskeletal-no joint pain, no muscle tenderness Skin-no bruising, no rashes, no pruritus Neuro-chronic left hemiparesis from old CVA Psych-no depression, no anxiety Physical Exam Physical Exam: General-alert and oriented x3, no fevers, no chills HEENT-head atraumatic and normocephalic, pupils equal and reactive to light, extraocular muscles intact Neck-no lymphadenopathy or thyromegaly, trachea midline Chest-clear to auscultation percussion. 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 Psych-normal affect, normal mood Results & Data Results & Data ([facility]) Vital Signs (Past 12 Hours) Vital Signs Temp Pulse Pulse Resp BP BP Pulse Ox 06/26/22 11:42 94 06/26/22 11:15 36.4 C L 94 H 20 102/69 95 06/26/22 08:15 36.5 C 80 19 116/75 93 06/26/22 07:20 74 06/26/22 03:26 36.4 C L 83 18 121/74 93 O2 Del Method 06/26/22 11:42 06/26/22 11:15 Room Air 06/26/22 08:15 Room Air 06/26/22 07:20 06/26/22 03:26 Room Air Laboratory Results 06/26/22 06:44 06/26/22 06:44 PG Care Time/CCT Total # of Minutes Spent Total Time Spent with Patient: Total time spent is greater than 50% in coordination of care (as documented) at patient's floor/unit and/or counseling patient: Coding Level of Care Code 87182 SUB INP/OBS CARE 3/50MIN Diagnoses Syncope R55 Syncope type: unspecified Nausea & vomiting R11.2 Vomiting type: unspecified History of incisional hernia repair Z98.890; Z87.19 Anxiety and depression F41.9; F32.A Hx of gastric ulcer Z87.11 AA (alcohol abuse) F10.10 Dyslipidemia E78.5 Stroke syndrome (1) Syncope Syncope type: unspecified Qualified Code(s): R55 - Syncope and collapse (2) Nausea & vomiting Vomiting type: unspecified Qualified Code(s): R11.2 - Nausea with vomiting, unspecified
[2022-06-26] MEDS: TAMSULOSIN HCL 0.4 MG CAP PO SCH (20:22)
[2022-06-27 07:35] VITALS: TEMP 97.7; O2SAT 97
[2022-06-27] MEDS: ASPIRIN 81 MG ECTAB PO SCH (07:58)
[2022-06-27] MEDS: MIDODRINE HCL 2.5 MG TAB PO SCH ×2 (07:58→12:03)
[2022-06-27] MEDS: FOLIC ACID 1 MG TAB PO SCH (07:58)
[2022-06-27] MEDS: ATORVASTATIN 10 MG TAB PO SCH (07:59)
[2022-06-27] MEDS: THIAMINE HCL 100 MG in SYRINGE 9 ML IV SCH (07:59)
[2022-06-27] MEDS: PANTOprazole 40 MG TAB PO SCH (07:59)
[2022-06-27] MEDS: FLUoxetine HCL 20 MG CAP PO SCH (07:59)
[2022-06-27 11:26] VITALS: BP 113/67
--- NOTE | 2022-06-27 12:12 | Discharge Summary ---
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 He was discharged 06/13/2022. He presents to the emergency department 06/25 for syncope evaluation. Patient reports that he had a fall at home and was found down by his daughter. Fasting BSG was 109. Patient did not have vomiting, nausea, diarrhea, chest pain, chest pressure, and has not noticed any recent bleeding. When patient was found by his family he was found passed out in his recliner chair. Pt thinks he passed out but got to the recliner chair, daughter found him responsive but weak in the recliner chair. 1:30am passed out. Was getting up to get tylenol. Took tylenol and was walking back to his room, was walking ~20 steps back to bed when he passed out. Thinks was passed out but does not know for how long. Awoke and crawled 20 feet to recliner chair. Demetrius came over and found him awake but very tired in the recliner chair. Was slurring speech more than normal, which seems to have persisted. Did have a previous stroke with residual L sided deficits in arm and leg. About 50-75% less strength in left with chronic L foot drop and minimal L activities specialist strength. No sensory deficit or changes, No facial asymmetry compared to normal. NO history of heart problems, no history of heart attack. No palpitations/chest pain/chest pressure. Fatigues easily with shortness of breath past 20-30 feet of walking, no chest pain or gasping just easily tired. Uses walker at home and rests between tasks. No bloody or black BMs. No history of bleeding from stomach of pains Hx HLD, on baby aspirin Lays back +vomiting/coughing/epigastric discomfort Hgb: 13.1 (last 12-11.6) CT-H naf EKG: nsr, no territorial ST/T wave changes. sinus. 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 No history of withdrawal. No history of substance abuse Principal Diagnosis Syncope due to orthostatic hypotension, GERD Discharge Exam General-alert and oriented x3, no fevers, no chills HEENT-head atraumatic and normocephalic, pupils equal and reactive to light, extraocular muscles intact Neck-no lymphadenopathy or thyromegaly, trachea midline Chest-clear to auscultation percussion. 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 Psych-normal affect, normal mood Discharge Data Allergies Allergy/AdvReac Type Severity Reaction Status Date / Time morphine Allergy Intermediate HIVES Verified 06/21/22 13:04 tobramycin Allergy Intermediate HIVES Verified 06/21/22 13:04 midazolam Allergy Mild RASH Verified 06/21/22 13:04 oxycodone Allergy Mild RASH Verified 06/21/22 13:04 codeine Allergy Unknown unsure of Verified 06/21/22 13:04 reaction Consultations 06/25/22 10:25 ED Decision to Admit Stat Ordered Studies 06/25/22 08:47 CT head/brain wo con Stat 06/25/22 11:46 MR brain wo con Routine 06/26/22 08:00 US carotid doppler BI Routine Hospital Course (1) Syncope: Appears to be of orthostatic etiology. No evidence of acute CVA seen on head CT scan or brain MRI. Now on midodrine. No significant arrhythmia seen on telemetry. Recent incisional hernia repair 2 weeks ago but I doubt if this is contributing to current symptoms. Noncritical carotid disease noted on Doppler study. No evidence of acute coronary syndrome. (2) Nausea & vomiting: Protonix has been started. No complaints of nausea or vomiting. KUB negative for obstruction (3) History of incisional hernia repair: S/p incisional hernia repair with Dr. Chappell with discharge 06/13/2022. Unremarkable surgical sites. (4) Anxiety and depression: Stable. Continue Prozac (5) Hx of gastric ulcer: PPI therapy (6) AA (alcohol abuse): Past history of. Nothing acute (7) Dyslipidemia: Continue statin therapy (8) Stroke syndrome: Acute CVA has been ruled out. DVT prophylaxis: SCDs, Lovenox Plan Discharge to home today, June 27. Home health services requested Total Time Total Time Spent Total Time Spent (In Minutes): 35 minutes Discharge Plan Discharge Items Patient Disposition: Home - Home Health Services Reason For Visit: SYNCOPE, NEW DYSARTHRIA Discharge Diagnosis: Orthostatic hypotension, syncope, GERD Activity: Resume your previous activity Non-emergency contact: Primary Care Provider Call non-emergency contact if: you have any medication questions and your symptoms worsen Follow-up/Referrals: Brigitte Lance, [Primary Care Provider] - Diet: Heart Healthy Addtl Attending Provider Instructions: Take midodrine as directed to help prevent low blood pressure Pending Studies at Discharge: No Stand-Alone Forms: efectivox, Smoking Cessation Medications and DC Order Prescriptions: New pantoprazole 40 mg Tablet,Delayed Release (Dr/Ec) 40 mg PO DAILY Qty: 30 0RF midodrine 2.5 mg Tablet 5 mg PO TID@0800,1200,1700 Qty: 100 0RF Continued atorvastatin 10 mg tablet 10 mg PO QAM aspirin 81 mg Tablet,Delayed Release (Dr/Ec) 81 mg PO QAM Rx Instructions: CURRENTLY ON HOLD FOR SURGERY multivitamin [Multiple Vitamins] Tablet 1 tab PO QAM [id number] [Citracal-D3 Maximum Plus] 325 mg-12.5 mcg -2.75 mg Tablet 2 tab PO QAM tamsulosin 0.4 mg capsule 0.4 mg PO HS Qty: 30 0RF fluoxetine [Prozac] 40 mg capsule 40 mg PO QAM ondansetron 4 mg tablet,disintegrating 4 mg PO Q6H PRN (Reason: nausea and vomiting) Qty: 14 0RF Admission Data Admit Date/Time: 06/25/22 11:01 Attending Provider: Jason Page Admit Provider: Jose Flores Primary Care Provider: Brigitte Lance Other Providers: Jose Flores Coding Level of Care Code HOSP INP/OBS DISCH >30 MIN Diagnoses Syncope R55 Syncope type: unspecified Nausea & vomiting R11.2 Vomiting type: unspecified History of incisional hernia repair Z98.890; Z87.19 Anxiety and depression F41.9; F32.A Hx of gastric ulcer Z87.11 AA (alcohol abuse) F10.10 Dyslipidemia E78.5 Stroke syndrome
[2022-06-27 13:46] VITALS: PULSE 77
== END 2022-06-27 15:28 | disposition home health service (06) ==
LOC: 2W 08:40 → ED 08:40 → SUATTDRO 11:01 → 2W 11:19

== ENCOUNTER 2023-06-30 08:27 | Observation (INO) ==
--- OUTSIDE RECORDS SUMMARY | 2023-06-30 08:30 | External Medical Summary | Continuity of Care Document ---
Author Name Unknown Organization [facility] [address] [place] [address] Y[place] LUCAS [id number] Care Team Providers Care Contract Loader Name Role Phone Brigitte Lance Primary Care Physician [phone] [id number] Date(s): 06/22/23 - 06/22/23 [facility] [address] [facility] [address], [address], [address] [place] [address] Encounter Diagnosis Body mass index [BMI] 27.0-27.9, adult(Discharge Diagnosis) - 06/22/23 Encounter for preoperative assessment(Discharge Diagnosis) - 06/22/23 Discharge Disposition: Home or Self Care Attending Physician: MD Rabia, Celina Sharma Allergies, Adverse Reactions, Alerts Substance Reaction Severity Status codeine Hives Active tobramycin Hives Active oxycodone Vomiting Nausea Active Tylenol Hives Active Versed Hives Active Immunizations Given and Recorded Vaccine Date Status Refusal Reason influenza virus vaccine, inactivated 04/04/23 Give n influenza virus vaccine, inactivated 03/14/21 Alexandro rded influenza virus vaccine, inactivated 02/12/18 Give n influenza virus vaccine, inactivated 1 02/27/17 Re corded influenza virus vaccine, inactivated 2 02/24/16 Re corded influenza virus vaccine, inactivated 02/19/16 Alexandro rded influenza virus vaccine, inactivated 3 02/17/15 Re corded influenza virus vaccine, inactivated 4 02/04/14 Re corded SARS-CoV-2 (COVID-19) mRNA BNT-162b2 vax 03/14/21 Recorded SARS-CoV-2 (COVID-19) mRNA BNT-162b2 vax 07/28/20 Recorded SARS-CoV-2 (COVID-19) mRNA BNT-162b2 vax 07/07/20 Recorded zoster vaccine, inactivated 5 2/10/20 Recorded pneumococcal 13-valent vaccine 02/27/18 Given 1Result Comment: 2017-12-04: Historical information-source unspecified 2Result Comment: 2017-12-04: Historical information-source unspecified 3Result Comment: 2017-12-04: Historical information-source unspecified 4Result Comment: 2017-12-04: Historical information-source unspecified 5Result Comment: 2021-05-02: Historical information-source unspecified Medications aspirin 81 mg oral enteric coated tablet Start: 04/26/11 10:10:00, 1 tab, PO, Every other day Start Date: 04/26/11 Status: Ordered atorvastatin 10 mg oral tablet Start: 08/14/22 14:55:00 EDT, See Instructions, Disp# 90 tab, Refills: 2, Take 1 tablet by mouth once daily, Pharmacy: [id number] Start Date: 08/14/22 Status: Ordered calcium (as calcium citrate) 250 mg oral tablet Start: 05/02/21 9:22:00 EST, 1 tab, PO, bid Start Date: 05/02/21 Status: Ordered FLUoxetine 20 mg oral capsule Start: 11/24/22 13:24:00 EDT, See Instructions, Disp# 30 cap, Refills: 6, Take 1 capsule by mouth once daily, Pharmacy: [id number] Start Date: 11/24/22 Status: Ordered midodrine 2.5 mg oral tablet Start: 06/11/23 12:11:00 EST, 2 tab, PO, tid, Disp# 180 tab, Refills: 0, Pharmacy: [id number] Start Date: 06/11/23 Status: Ordered multivitamin Start: 04/26/11 10:10:00, 1 tab, PO, Daily, tab Start Date: 04/26/11 Status: Ordered nitrofurantoin macrocrystals 100 mg oral capsule Start: 06/21/23 10:03:00 EST, 1 cap, PO, Daily, Disp# 28 cap, Please start 7 days prior to surgery and continue for 7 days following discharge from hospital., Note to Pharmacy: Please call patient when available for pickup., Pharmacy: [facility] Start Date: 06/21/23 Status: Ordered pantoprazole 40 mg oral delayed release tablet Start: 06/11/23 12:11:00 EST, 1 tab, PO, Daily, Disp# 30 tab, Refills: 0, Pharmacy: [id number] Start Date: 06/11/23 Status: Ordered tamsulosin 0.4 mg oral capsule Start: 10/17/22 14:00:00 EDT, See Instructions, Disp# 90 cap, Refills: 2, Take 1 capsule by mouth once daily, Pharmacy: [id number] Start Date: 10/17/22 Status: Ordered Mental Status 06/22/23 Barriers to Learning one year None evide nt Mandatory Health Literacy Documentation Yes Health Literacy Communication Barriers N ever Primary Language Icelandic Problem List Condition Confirmation Course Effective Dates Status H ealth Status Informant ACTINIC KERATOSIS Confirmed Active ALLERGIC RHINITIS Confirmed Active Anal Fissure Confirmed Active Back pain Confirmed 09/10/12 Active BPH associated with nocturia Confirmed Active CVA Confirmed Active DYSPEPSIA Confirmed Active Elevated blood pressure Confirmed Active Gastritis Confirmed 02/20/12 Active Grieving Confirmed Active Hemiplegia and hemiparesis following cerebral infarction affecting unspecified side Confirmed Active Ventral hernia Confirmed Active Cerumen impaction Confirmed Active Interstitial pulmonary disease, unspecified 1 Confirmed Active Prostate cancer 2 Confirmed Active Nephrolithiasis Confirmed 11/17/12 Active Pre-op exam Confirmed Active Personal history of skin cancer Confirmed Active Recurrent depression 3 Confirmed Active Orthostatic syncope Confirmed Active Tinea corporis Confirmed Active Upper extremity pain Confirmed 09/10/12 Active Urticaria Confirmed Active 1See 08/01/22 Out Note [id number] 06/25/22- CXR Chronic interstitial thickening 2See outside note 11/08/2021 [facility] Radiation Onc visit 11/04/2021 3Duloxetine, escitalopram Diagnosis Diagnosis Type Effective Dates Health Status Clinical Service Informant Body mass index [BMI] 27.0-27.9, adult Discharge Diagnosis 06/22/23 Non-Specified Encounter for preoperative assessment Discharge Diagnosis 06/22/23 Non-Specified Procedures Procedure Date Related Diagnosis Body Site Status Lithotripsy 02/10/[address] of abdomen and pelvis 1 05/10/20 Completed Excision of cataract 2 02/22/15 Co mpleted Shave biopsy and cauterization of skin 02/17/13 Completed Brain 3 Completed Cataract surgery Complete d EGD Completed Partial resection of colon Completed Prostate biopsy specimen Completed Tooth extraction Complete d umbilical hernia repair C ompleted 1impression: 1. 6 X 4 X 4 mm calculus of the right proximal ureter just distal to the ureteropelvic junction withour significan associated obstructive uropathy 2. nonobstructive uropathy 3. marked prostamegaly with urinary bladder wall thickening suggestive of chronic bladder outlet obstruction 4. 3mm calcification within the right dependent urinary bladder is unchanged from comparison suggestive of a bladder calculus. A calculus within the right ureterovesicular junction is considered lesslikely 5. a small abdominal hernia contains mesenteric fat and nonobstructed loop of small bowel 6. additional findings as above 2right eye 3brain surgery Vital Signs Most recent to oldest [Reference Range]: 1 Height 181 cm (06/22/23 10:26 AM) Patient Weight 89.4 kg (06/22/23 10:26 AM) Body Mass Index 27.29 kg/m2 (06/22/23 10:26 AM) Temperature [36.5-37.9 DegC] 35.9 DegC *LOW* (06/22/23 10:26 AM) Heart Rate 75 bpm (06/22/23 10:26 AM) Respiratory Rate 18 br/min (06/22/23 10:26 AM) Blood Pressure 118/62mmHg (06/22/23 10:26 AM) Mean Blood Pressure 92 mmHg (06/22/23 10:26 AM) Cuff Pulse Pressure 56 mmHg (06/22/23 10:26 AM) BP Location # 1 Left Arm (06/22/23 10:26 AM) Social History Social History Type Response Smoking Status Never smoked cigaret henrry Sex Male Radiology * Contributor_system, MUSE01: VERIFY, PERFORM Event Display: EKG Authored Date: Please click on link to see image. Patient Care team information Care Team Personnel Name: DO Lance Kristen M Position: Physician - Family Med Member Role: Primary Care Provider Address: Address: [address] [place] [address] Name: Lamin Blevins Position: HIS Supervisor_P Member Role: HIS Lifetime Care Team Related Persons Name: MAGALIS SHELDON Address: home [address] [place] [phone] Name: EB ECHAVARRIA
--- OUTSIDE RECORDS SUMMARY | 2023-06-30 08:30 | External Medical Summary | Continuity of Care Document ---
Author Name Unknown Organization [facility] [address] [place] [id number] Care Team Providers Care Corrugator Helper Name Role Phone Brigitte Lance Primary Care Physician [id number] Date(s): 06/22/23 - 06/22/23 [facility] [address] [place] [id number] Discharge Disposition: Home or Self Care Attending Physician: MD Lee John Referring Physician: MONIQUE Robles Kristen Marie Allergies, Adverse Reactions, Alerts Substance Reaction Severity [...] vax 07/07/20 Recorded zoster vaccine, inactivated 5 06/30/19 Recorded pneumococcal 13-valent vaccine 02/27/18 Given 1Result [...] 1 tablet by mouth once daily, Pharmacy: [id number] Start Date: 08/14/22 Status: Ordered calcium (as calcium citrate) 250 mg oral tablet Start: 05/02/21 9:22:00 EST, 1 tab, PO, bid Start Date: 05/02/21 Status: Ordered FLUoxetine 20 mg oral capsule Start: 11/24/22 13:24:00 EDT, See Instructions, Disp# 30 cap, Refills: 6, Take 1 capsule by mouth once daily, Pharmacy: [facility] Start Date: 11/24/22 Status: Ordered midodrine 2.5 mg oral tablet Start: 06/11/23 12:11:00 EST, 2 tab, PO, tid, Disp# 180 tab, Refills: 0, [id number] Start Date: 06/11/23 Status: Ordered multivitamin Start: 04/26/11 10:10:00, 1 tab, PO, Daily, tab Start Date: 04/26/11 Status: Ordered nitrofurantoin macrocrystals 100 mg oral capsule Start: 06/21/23 10:03:00 EST, 1 cap, PO, Daily, Disp# 28 cap, Please start 7 days prior to surgery and continue for 7 days following discharge from hospital., Note to Pharmacy: Please call patient when available for pickup., Pharmacy: [facility] Start Date: 06/21/23 Status: Ordered pantoprazole 40 mg oral delayed release tablet Start: 06/11/23 12:11:00 EST, 1 tab, PO, Daily, Disp# 30 tab, Refills: 0, Pharmacy: [id number] Start Date: 06/11/23 Status: Ordered tamsulosin 0.4 mg oral capsule Start: 10/17/22 14:00:00 EDT, See Instructions, Disp# 90 cap, Refills: 2, Take 1 capsule by mouth once daily, Pharmacy: [id number] Start Date: 10/17/22 Status: Ordered Problem List Condition Confirmation Course Effective Dates [...] Chronic interstitial thickening 2See outside note 11/08/2021 [facility] Radiation Onc visit 11/04/2021 3Duloxetine, escitalopram Procedures Procedure Date Related Diagnosis Body Site [...] findings as above 2right eye 3brain surgery Results Laboratory List Name Date Specimen Type (SPECIMEN TYPE) 2/2/24 Urine Container on Hold in Laboratory (E XTRA URINE) 06/22/23 Most recent to oldest [Reference Range]: 1 Urine Container Specimen available f rom 0 to 3 days based on specimen stability. Please use addon order if you wish to order testing. *Unknown* (06/22/23 12:01 PM) BF Source Urine in TIGER top t ube good for UA only *Unknown* (06/22/23 12:01 PM) Orders for Microbiology Reports Name Date Urine Culture (CULTURE, URINE) 06/22/23 Microbiology Reports TEST:Urine.Cx STATUS:Auth (Verified) BODY SITE: SOURCE:Urine COLLECTED DATE/TIME:06/22/23 12:01 PM Culture 30 THOUSAND COLONIES/ML Mixed Urogenital Gaye Social History Social History Type Response Smoking Status Never smoked cigaret henrry Sex Male Patient Care team information Care Team Personnel Name: DO Lance Kristen M Position: Physician - Family Med Member Role: Primary Care Provider Address: Address: [address] [place] [id number] Name: Lamin Blevins Position: HIS Supervisor_P Member Role: HIS Lifetime Care Team Related Persons Name: MAGALIS SHELDON Address: home [address] [place] [phone] Name: EB ECHAVARRIA
[2023-06-30] MEDS: PHENAZOPYRIDINE HCL 200 MG TAB PO STA (09:19)
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
[2023-06-30] MEDS: LIDOCAINE 2% JELLY 5 ML TUBE EXT ONE (09:32)
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
[2023-06-30 09:56] LABS: Basophils # (auto) 0.02 K/uL (0.00-0.20); Basophils % (auto) 0.1 %; Hematocrit (blood only) 38.2 % (42.0-52.0); Hemoglobin 13.5 g/dl (14.0-18.0); Immature Granulocytes # (auto) 0.15 K/uL (0.01-0.20); Lymphocytes # (auto) 0.61 K/uL (1.20-3.40); Lymphocytes % (auto) 4.1 %; Mean Corpuscular Hemoglobin 32.8 pg (25.0-34.0); Mean Corpuscular Hgb Conc 35.3 g/dL (32.0-36.0); Mean Corpuscular Volume 92.7 fL (80.0-100.0); Monocytes # (auto) 1.06 K/uL (0.11-0.59); Monocytes % (auto) 7.2 %; Neutrophils # (auto) 12.88 K/uL (1.40-6.50); Neutrophils % (auto) 87.6 %; Platelet Count 277 K/uL (130-400); RDW Coefficient of Variation 12.9 % (11.5-14.5); Red Blood Count 4.12 M/uL (4.70-6.10); White Blood Count 14.72 K/ul (4.8-10.8)
[2023-06-30 10:15] LABS: Albumin Globulin Ratio 1.6 (0.9-2); Albumin Level 4.1 gm/dl (3.4-5.0); BUN Creatinine Ratio 22.8 (10-20); Bilirubin,Total 0.8 mg/dl (0.2-1.0); Calcium 9.6 mg/dl (8.6-10.3); Creatinine Clr Calc Pharmacy 67.9 ml/min; Est GFR (African American) 89.5 ml/min; Est GFR (Non-African American) 77.2 ml/min; Globulin 2.6 gm/dl (2.5-4.0); Total Protein 6.7 gm/dl (6.0-8.3)
[2023-06-30 10:22] LABS: Prothrombin Time 11.4 Seconds (9.0-12.0)
[2023-06-30] MEDS: SODIUM CHLORIDE 0.9% 500 ML IV ONE (10:40)
[2023-06-30] MEDS: methylPREDNISolone 125 MG/2 ML VIAL IV STA (10:40)
[2023-06-30] MEDS: FAMOTIDINE 20MG IV PUSH 20 MG/5 ML SYR IV STA (10:43)
[2023-06-30] MEDS: diphenhydrAMINE 50 MG/ML VIAL IV STA (10:46)
[2023-06-30 10:52] LABS: Appearance Urine Turbid (Clear); Bacteria Urine Automated Negative (Negative); Blood Urine 3+ (Negative); Color Urine Orange; Glucose Urine UA Negative (Negative); Ketones Urine Negative (Negative); Leukocyte Esterase Urine 2+ (Negative); Nitrite Urine Positive (Negative); Protein Urine 2+ (Negative); RBC Urine Automated >30 /hpf (0-4); Specific Gravity Urine 1.032 (1.000-1.030); Urobilinogen Urine Negative (Negative); WBC Urine Automated >30 /hpf (0-5)
[2023-06-30 11:01] LABS: Bilirubin Urine 1+ (Negative)
[2023-06-30 11:18] LABS: Cast Urine Automated 0 /lpf (0-5)
[2023-06-30] MEDS: SODIUM CHLORIDE 0.9% 1,000 ML IV SCH (11:45)
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
[2023-06-30] MEDS ORDERED: PHENAZOPYRIDINE HCL 200 MG TAB PO PRN (12:14)
[2023-06-30] MEDS: ACETAMINOPHEN 325 MG TAB PO SCH (12:52)
[2023-06-30] MEDS: TAMSULOSIN HCL 0.4 MG CAP PO ONE (12:52)
[2023-06-30] MEDS: MIDODRINE HCL 2.5 MG TAB PO STA (12:52)
[2023-06-30] MEDS: VANCOMYCIN HCL 1,750 MG in SODIUM CHLORIDE 0.9% 500 ML IV ONE (12:52)
[2023-06-30] MEDS: PANTOprazole 40 MG TAB PO STA (12:53)
--- NOTE | 2023-06-30 13:39 | XRay Report ---
SINGLE VIEW CHEST CLINICAL HISTORY: Infection. FINDINGS: An AP, portable, upright chest radiograph is compared to study dated 06/25/2022. Correlation is made with chest CT dated 08/02/2012. The heart is enlarged and noting atherosclerotic calcification of the thoracic aorta. The pulmonary vasculature is noncongested. Chronic interstitial thickening is similar to previous. There is chronic elevation of the right hemidiaphragm and mild bibasilar atelec tasis. No airspace consolidation or pleural effusion is identified. No pneumothorax is seen. The skel etal structures are osteopenic. The bony thorax is grossly intact. IMPRESSION: Cardiomegaly with no active disease in the chest. ACT 112: Negative or not required by law. Electronically signed by: Shane Anderson M.D. 06/30/2023 1:38 PM
[2023-06-30] MEDS: MIDODRINE HCL 2.5 MG TAB PO SCH (15:40)
[2023-07-01 06:39] LABS: Basophils # (auto) 0.01 K/uL (0.00-0.20); Basophils % (auto) 0.1 %; Hematocrit (blood only) 34.5 % (42.0-52.0); Hemoglobin 11.6 g/dl (14.0-18.0); Immature Granulocytes # (auto) 0.08 K/uL (0.01-0.20); Immature Granulocytes % (auto) 0.7 %; Lymphocytes # (auto) 0.59 K/uL (1.20-3.40); Lymphocytes % (auto) 5.3 %; Mean Corpuscular Hemoglobin 32.1 pg (25.0-34.0); Mean Corpuscular Hgb Conc 33.6 g/dL (32.0-36.0); Mean Corpuscular Volume 95.6 fL (80.0-100.0); Mean Platelet Volume 9.5 fL (9.4-12.4); Monocytes # (auto) 0.72 K/uL (0.11-0.59); Monocytes % (auto) 6.5 %; Neutrophils # (auto) 9.68 K/uL (1.40-6.50); Neutrophils % (auto) 87.4 %; Platelet Count 231 K/uL (130-400); RDW Standard Deviation 45.4 fL (36.4-46.3); Red Blood Count 3.61 M/uL (4.70-6.10); White Blood Count 11.08 K/ul (4.8-10.8)
[2023-07-01 07:07] LABS: BUN Creatinine Ratio 27.5 (10-20); Calcium 8.7 mg/dl (8.6-10.3); Creatinine Clr Calc Pharmacy 90.6 ml/min; Est GFR (African American) 102.5 ml/min; Est GFR (Non-African American) 88.4 ml/min; Magnesium 1.9 mg/dl (1.7-2.4); Potassium 4.4 mmol/L (3.5-5.1)
--- NOTE | 2023-07-01 07:07 | Electrocardiogram Report ---
Test Reason : Blood Pressure : / mmHG Vent. Rate : 072 BPM Atrial Rate : 072 BPM P-R Int : 178 ms QRS Dur : 082 ms QT Int : 412 ms P-R-T Axes : 022 005 033 degrees QTc Int : 451 ms Normal sinus rhythm Low voltage QRS Borderline ECG When compared with ECG of 25-JUN-2022 08:48, Criteria for Inferior infarct are no longer Present Confirmed by Jak Goff ([id number]) on 07/01/2023 7:06:58 AM Referred By: REFERRED SELF Confirmed By:Wilbur Goff
[2023-07-01 07:21] LABS: INR 1.1 (0.9-1.1); Prothrombin Time 11.9 Seconds (9.0-12.0)
[2023-07-01 07:37] VITALS: BP 137/70; PULSE 70; RESP 16; TEMP 98.1; O2SAT 94
[2023-07-01] MEDS: PANTOprazole 40 MG TAB PO SCH (08:15)
[2023-07-01] MEDS: FLUoxetine HCL 20 MG CAP PO SCH (08:15)
[2023-07-01] MEDS: TAMSULOSIN HCL 0.4 MG CAP PO SCH (08:15)
[2023-07-01] MEDS: ASPIRIN 81 MG ECTAB PO SCH (08:15)
[2023-07-01] MEDS: ATORVASTATIN 10 MG TAB PO SCH (08:15)
--- NOTE | 2023-07-01 09:49 | Urology Progress Note ---
Date of Service July 01, 2023 Assessment & Plan (1) Trauma of urethra: (2) Acute urinary retention: Plan Urinary retention/incidental Porter DC'd yesterday Has been well since his catheter was replaced Uncertain why he was hospitalized but from a 's perspective he certainly does not require continued confinement Outpatient follow-up for voiding trial on Sunday Admission and Anticipated Discharge Date Admission Date: June 30, 2023 Subjective No issues overnight Reports the catheter has not bothered him and the urine has cleared donnie mendoza Seems to be mentating very well and doing well overall today Labs are all appropriate Physical Exam Physical Exam: Porter in position and draining clear urine Results & Data Vital Signs (Past 12 Hours) Vital Signs Temp Pulse Resp BP Pulse Ox O2 Del Method 07/01/23 07:00 36.7 C 70 16 137/70 94 Room Air PG Care Time/CCT Total # of Minutes Spent Total Time Spent with Patient: Total time spent is greater than 50% in coordination of care (as documented) at patient's floor/unit and/or counseling patient: Coding Level of Care Code 96376 SUB INP/OBS CARE 2/35MIN Diagnoses Trauma of urethra S37.30XA Acute urinary retention R33.8
[2023-07-01] MEDS: cefTRIAXone SODIUM 2,000 MG in DEXTROSE 5 % MINI-B 50 ML IV SCH (10:48)
--- NOTE | 2023-07-01 12:53 | Discharge Summary ---
Date of Service July 01, 2023 Admission HPI Per Admitting Provider Dewey LuuYsabel Bocanegra is an 82 year old male with a PMH significant for prostate cancer S/P radiation therapy, recurrent nephrolithiasis, BPH with recently ross cath placement, orthostatic hypotension, previous alcohol abuse, and gastric ulcer who presented to the [facility] ED on 06/30/23 after pulling his ross catheter out due to discomfort at home. He remained stable in the ED. Labs were significant for a leukocytosis of 14 with neutrophil predominance of 12, stable Hgb of 13.5, stable renal function, and UA consistent with UTI. Prior to admission the patient was given a dose of ceftriaxone, dose of vancomycin, 1.5L NSS, 12.5 mg IV Benadryl, 125 mg IV methylprednisolone, and 200 mg PO Pyridium. The patient was evaluated by Urology who replaced his ross catheter in the ED. Urology recommended medicine admission for observation due to the trauma the patient sustained with previous ross removal. At the time of the exam the patient was sitting in bed in no acute distress with his daughters sitting bedside, history was obtained from all. He was seen at [facility] yesterday by their Urology team for his hx of BL kidney stones. They attempted a ureteroscopy but were unsuccessful with dee atment. He had the initial ross catheter placed yesterday at [place]. He states he experienced severe bladder pain early this am to the point that he needed to pull the catheter out himself. After pulling the ross out he had a large amount of bloody discharge. He denies recent fever, chills, chest pain, or abd pain. The new ross is comfortable and he is currently without discomfort. He is a DNR /DNI and would want his Daughters to make medical decisions for him if he cannot make them himself. He did not have breakfast or his am meds prior to arrival. Please refer to Dr. Dover's attestation for any changes to the treatment plan Principal Diagnosis urinary retention Discharge Data Allergies Allergy/AdvReac Type Severity Reaction Status Date / Time Opioids - Morphine Analogues Allergy Severe Anaphylaxis Verified 06/30/23 14:45 morphine Allergy Intermediate HIVES Verified 06/30/23 09:48 tobramycin Allergy Intermediate HIVES Verified 06/30/23 09:48 midazolam Allergy Mild RASH Verified 06/30/23 09:48 oxycodone Allergy Mild RASH Verified 06/30/23 09:48 codeine Allergy Unknown unsure of Verified 06/30/23 09:48 reaction phenazopyridine Allergy Hives Verified 06/30/23 11:19 [From Pyridium] Consultations 06/30/23 12:01 ED Decision to Admit Stat 06/30/23 12:27 Consult Urology Routine Hospital Course (1) Acute urinary retention: -Admit to [facility] [place] -Currently stable -Developed acute urinary retention after removing his own ross catheter at home due to bladder pain -Was evaluated by Urology who placed a new ross catheter, they will follow up with him outpatient for voiding trial -Noted to have a leukocytosis with UA consistent with UTI -Given a dose of Ceftriaxone and vancomycin in the ED >Vancomycin given due to his hx of Enterobacter UTI -Will continue Ceftriaxone and Vancomycin for now -Follow urine culture and adjust regimen as needed -Will obtain CXR to rule out other sources of infection -Will give 1L LR on admission due to dehydration -Pain control with tylenol and prn Pyridium for now -BL RANI's for DVT PPX -HH diet -AM CBC, bmp, mag, PT/INR Patient reports feeling well, no hematuria, he ambulates, no fever, stable for discharge (2) Hx of gastric ulcer: -Continue pantoprazole (3) Orthostatic hypotension: -BP has been stable today -Fall precautions ordered -Continue TID Midodrine and IV fluids Plan discharge home with home care and antibiotics Total Time Total Time Spent Total Time Spent (In Minutes): 40 Discharge Plan Discharge Items Patient Disposition: Home - Home Health Services Reason For Visit: URINERY RETENTION, PULLED OWN ROSS OUT, UTI Discharge Diagnosis: urinary retention Activity: Resume your previous activity Lifting: None Bathing: No limitations Non-emergency contact: Primary Care Provider and Urologist Call non-emergency contact if: you have any medication questions, your pain is worsening and you have a fever Follow-up/Referrals: Brigitte Lance DO [Primary Care Provider] - Diet: Low Fat Addtl Attending Provider Instructions: follow up with PCP on urine cultue Pending Studies at Discharge: Yes Studies:: urine culture Stand-Alone Forms: My Stripe, Smoking Cessation Medications and DC Order Prescriptions: New cephalexin 500 mg capsule 500 mg PO BID 7 Days Qty: 14 0RF Continued atorvastatin 10 mg tablet 10 mg PO QAM aspirin 81 mg Tablet,Delayed Release (Dr/Ec) 81 mg PO QAM Rx Instructions: CURRENTLY ON HOLD FOR SURGERY multivitamin [Multiple Vitamins] Tablet 1 tab PO QAM [id number] [Citracal-D3 Maximum Plus] 325 mg-12.5 mcg -2.75 mg Tablet 2 tab PO QAM midodrine 2.5 mg Tablet 5 mg PO TID@0800,1200,1700 Qty: 100 0RF fluoxetine [Prozac] 40 mg capsule 40 mg PO QAM tamsulosin 0.4 mg capsule 0.4 mg PO QAM pantoprazole 40 mg tablet,delayed release (DR/EC) 40 mg PO QAM Admission Data Admit Date/Time: 06/30/23 14:29 Attending Provider: Barbara Medrano Admit Provider: Cassius Dover Primary Care Provider: Brigitte Lance Other Providers: Cassius Dover; Jak Evangelista Coding Level of Care Code 07372 INP/OBS DISCH >30 MIN Diagnoses Acute urinary retention R33.8 Hx of gastric ulcer Z87.11 Orthostatic hypotension I95.1
== END 2023-07-01 15:31 | disposition home health service (06) ==
LOC: ED 08:27 → 3N 08:27 → SUATTDRO 14:29

== ENCOUNTER 2024-03-07 03:40 | Inpatient (IN) ==
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
[2024-03-07] MEDS: SODIUM CHLORIDE 0.9% 500 ML IV ONE (04:06)
[2024-03-07] MEDS: ACETAMINOPHEN 1,000 MG/100 ML VIAL IV STA (04:06)
[2024-03-07 04:12] LABS: Basophils # (auto) 0.06 K/uL (0.00-0.20); Basophils % (auto) 0.7 %; Eosinophils # (auto) 0.32 K/uL (0.00-0.50); Eosinophils % (auto) 3.7 %; Hematocrit (blood only) 44.1 % (42.0-52.0); Hemoglobin 14.4 g/dl (14.0-18.0); Immature Granulocytes # (auto) 0.05 K/uL (0.01-0.20); Immature Granulocytes % (auto) 0.6 %; Lymphocytes # (auto) 1.13 K/uL (1.20-3.40); Lymphocytes % (auto) 12.9 %; Mean Corpuscular Hemoglobin 31.7 pg (25.0-34.0); Mean Corpuscular Hgb Conc 32.7 g/dL (32.0-36.0); Mean Corpuscular Volume 97.1 fL (80.0-100.0); Monocytes # (auto) 0.74 K/uL (0.11-0.59); Monocytes % (auto) 8.5 %; Neutrophils # (auto) 6.45 K/uL (1.40-6.50); Neutrophils % (auto) 73.6 %; Platelet Count 294 K/uL (130-400); RDW Coefficient of Variation 13.2 % (11.5-14.5); RDW Standard Deviation 47.8 fL (36.4-46.3); Red Blood Count 4.54 M/uL (4.70-6.10); White Blood Count 8.75 K/ul (4.8-10.8)
[2024-03-07] MEDS: ONDANSETRON INJ 2 MG/ML 2 ML VIAL IV STA ×3 (04:35→08:17)
[2024-03-07] MEDS: METOCLOPRAMIDE HCL INJ 5 MG/ML 2 ML VIAL IV ONE ×2 (04:37→22:27)
[2024-03-07 04:40] LABS: Albumin Level 4.4 gm/dl (3.4-5.0); BUN Creatinine Ratio 28.6 (10-20); Bilirubin Direct 0.2 mg/dl (0-0.2); Bilirubin,Total 0.9 mg/dl (0.2-1.0); Calcium 9.7 mg/dl (8.6-10.3); Creatinine Clr Calc Pharmacy 79.8 ml/min; Total Protein 7.4 gm/dl (6.0-8.3)
[2024-03-07] MEDS: ACETAMINOPHEN 1000 MG/100 ML IV IV ONE (05:35)
[2024-03-07 05:55] LABS: Appearance Urine Turbid (Clear); Bacteria Urine Automated 2+ (None Seen); Bilirubin Urine Negative (Negative); Blood Urine 3+ (Negative); Cast Urine Automated >20 /lpf (0-2); Color Urine Orange; Epithelial Cell Urine Auto 0-2 /hpf (0-2); Glucose Urine UA Negative (Negative); Ketones Urine Negative (Negative); Leukocyte Esterase Urine 3+ (Negative); Mucus Urine Present (None Prsent); Nitrite Urine Negative (Negative); Protein Urine 2+ (Negative); RBC Urine Automated >20 /hpf (0-2); Specific Gravity Urine 1.017 (1.000-1.030); Urobilinogen Urine Negative (Negative); WBC Urine Automated >50 /hpf (0-5); pH Urine 8.5 (4.5-7.5)
[2024-03-07] MEDS: HYDROCODONE/ACETAMOPHEN 5/325MG TAB PO STA (06:06)
[2024-03-07] MEDS: fentaNYL citrate PF 100 MCG/2 ML VIAL IV STA ×2 (06:35→08:17)
[2024-03-07] MEDS: cefTRIAXone SODIUM 2,000 MG/50 ML BAG IV STA (06:37)
--- NOTE | 2024-03-07 07:30 | CT Scan Report ---
Exam(s): CT ABDOMEN + PELVIS Without Contrast EXAM: CT Abdomen and Pelvis Without Intravenous Contrast CLINICAL HISTORY: Reason for exam: Worsening right flank pain. TECHNIQUE: Axial computed tomography images of the abdomen and pelvis without intravenous contrast. CTDI is 21.45 mGy and DLP is 1126.99 mGy-cm. Automated exposure control was utilized for the study. A dose lowering technique was utilized adhering to the principles of ALARA. COMPARISON: No relevant prior studies available. FINDINGS: Limitations: Limited evaluation in the absence of contrast. Lung bases: Dependent bronchiectasis at the lung bases which may relate to chronic infection/aspiration changes. Heart: Coronary artery calcifications. ABDOMEN: Liver: Low attenuation focus in the liver consistent with a hepatic cyst. No follow-up is necessary. Gallbladder and bile ducts: Cholecystectomy changes. No ductal dilation. Pancreas: Fatty infiltration of the atrophied pancreas. No ductal dilation. Spleen: Unremarkable. No splenomegaly. Adrenals: Unremarkable. No mass. Kidneys and ureters: Patient status post right nephrostomy tube placement with coil in the right renal pelvis. Calculus noted within the coil measuring up to 9 mm. Nonobstructive calculi within the kidneys bilaterally. No evidence of collecting system dilatation. Stomach and bowel: No evidence of bowel obstruction. Colonic diverticulosis. No evidence of diverticulitis. PELVIS: Appendix: Normal appendix. Bladder: Diffuse bladder wall thickening with gas in the bladder dome and perivesicular stranding. Findings are favored to relate to cystitis. No stones. Reproductive: Unremarkable as visualized. ABDOMEN and PELVIS: Intraperitoneal space: Unremarkable. No free air. No significant fluid collection. Bones/joints: Degenerative changes in the spine. Flowing osteophyte formations in the spine compatible with diffuse idiopathic skeletal hyperostosis (DISH). No acute fracture. No dislocation. Soft tissues: Gynecomastia. Hernia mesh along the anterior abdomen. Vasculature: Atherosclerotic disease. Lymph nodes: Unremarkable. No enlarged lymph nodes. IMPRESSION: 1. Patient status post right nephrostomy tube placement with coil in the right renal pelvis. Calculus noted within the coil measuring up to 9 mm. 2. Nonobstructive calculi within the kidneys bilaterally. No evidence of collecting system dilatation. 3. Diffuse bladder wall thickening with gas in the bladder dome and perivesicular stranding. Findings are favored to relate to cystitis. 4. No other acute findings. 5. Incidental findings as described. Electronically signed by: Aj Francis MD 03/07/24 07:29 AM
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
[2024-03-07] MEDS ORDERED: HYDROmorphone INJ 0.5 MG/0.5 ML SYR IV PRN (12:10)
[2024-03-07] MEDS ORDERED: ALUMINUM/MAGNESIUM SUSP 30 ML UDC PO PRN (12:10)
[2024-03-07] MEDS ORDERED: MELATONIN 3 MG TAB PO PRN (12:10)
[2024-03-07] MEDS ORDERED: HYDROmorphone INJ 1 MG/ML SYRINGE IV PRN (12:10)
[2024-03-07] MEDS: ASPIRIN 81 MG ECTAB PO SCH (14:11)
[2024-03-07] MEDS: DOCUSATE SODIUM/SENNA 50/8.6MG TAB PO SCH (14:11)
[2024-03-07] MEDS: ATORVASTATIN 10 MG TAB PO SCH (14:11)
[2024-03-07] MEDS: PANTOprazole 40 MG TAB PO SCH (14:12)
[2024-03-07] MEDS: FLUoxetine HCL 20 MG CAP PO SCH (14:12)
[2024-03-07] MEDS: MIDODRINE HCL 2.5 MG TAB PO SCH (14:12)
[2024-03-07] MEDS: TAMSULOSIN HCL 0.4 MG CAP PO SCH (14:12)
[2024-03-07] MEDS: CALCITRIOL 0.25 MCG CAPSULE PO SCH (14:13)
[2024-03-07] MEDS: SODIUM CHLORIDE 0.9% 1,000 ML IV SCH (14:16)
--- OUTSIDE RECORDS SUMMARY | 2024-03-07 14:26 | External Medical Summary | Continuity of Care Document ---
Author Name Unknown Organization [facility] Address [address] [place] [address] [phone] Care Team Providers Care Seed Sales Manager Name Role Phone CasiBrigitte Shital Primary Care Physician [phone] Encounter [facility] [id number] Date(s): 02/20/24 - 02/20/[address] [phone] Discharge Disposition: Home or Self Care Attending Physician: MD Shemar, Chasity Harrell Referring Physician: MD Samayoa Prabhjot Allergies, Adverse Reactions, Alerts Substance Criticality Severity Reaction Reaction Severity Status codeine Hives Active tobramycin Hives Active oxycodone Vomiting Nausea Active Tylenol Hives Active Versed Hives Active Functional Status 02/20/24 History of Fall in Last 3 Months Flores N o Presence of Secondary Diagnosis Flores No Use of Ambulatory Aid Flores Crutches/can e/walker IV/Heparin Lock Fall Risk Flores No Gait/Transferring Fall Risk Flores Impair ed Mental Status Fall Risk Flores Oriented t o own ability Flores Fall Risk Score 35 Flores Fall Risk Low Risk 02/20/24 Neurological Symptoms Weakness ADLs Minimal assistance Facial Symmetry Symmetric Gait Unable to assess Swallowing Difficulty NPO Level of Consciousness Neuro Alert Hallucinations Present None Speech Pattern Garbled Immunizations Given and Recorded Vaccine Date Status [...] mg oral enteric coated tablet Start: 04/26/11 10:10:00 AM EST, 1 tab, PO, Every other day Start Date: 04/26/11 Status: Ordered atorvastatin 10 mg oral tablet Start: 09/03/23 3:38:00 PM EDT, 1 tab, PO, Daily, Disp# 90 tab, Refills: 2, Pharmacy: [id number] Start Date: 09/03/23 Status: Ordered calcium (as citrate)-vitamin D 250 mg-5 mcg (200 intl units) oral tablet Start: 02/20/24 9:40:00 AM EDT, 1 tab, PO, bid Start Date: 02/20/24 Status: Ordered FLUoxetine (Eqv-PROzac) 20 mg oral tablet Start: 02/20/24 9:41:00 AM EDT Start Date: 02/20/24 Status: Ordered lactulose 10 g/15 mL oral syrup Start: 12/13/23 5:28:00 PM EDT, 15 mL, PO, Daily, Disp# 120 mL, Refills: 2, PRN: as needed for constipation, Pharmacy: [id number] Start Date: 12/13/23 Status: Ordered midodrine 2.5 mg oral tablet Start: 01/24/24 1:05:00 PM EDT, 2 tab, PO, tid, Disp# 180 tab, Refills: 0, Pharmacy: [id number] Start Date: 01/24/24 Status: Ordered multivitamin Start: 04/26/11 10:10:00 AM EST, 1 tab, PO, Daily, tab Start Date: 04/26/11 Status: Ordered tamsulosin 0.4 mg oral capsule Start: 10/17/22 2:00:00 PM EDT, See Instructions, Disp# 90 cap, Refills: 2, Take 1 capsule by mouth once daily, Pharmacy: [id number] Start Date: 10/17/22 Status: Ordered Problem List Condition Confirmation Course Effective Dates Status H ealth Status Informant ACTINIC KERATOSIS Confirmed Active ALLERGIC RHINITIS Confirmed Active Anal Fissure Confirmed Active Back pain Confirmed 09/10/12 Active BPH associated with nocturia Confirmed Active DYSPEPSIA Confirmed Active Elevated blood [...] Chronic interstitial thickening 2See outside note 11/08/2021 [facility] Radiation Onc visit 11/04/2021 3Duloxetine, escitalopram Procedures [...] Most recent to oldest [Reference Range]: 1 2 3 Temperature [36.5-37.9 DegC] 35.6 DegC *LOW* (02/20/24 12:16 PM) 36.1 DegC *LOW* (02/20/24 9:23 AM) Heart Rate 79 bpm (02/20/24 2:00 PM) 70 bpm (02/20/24 1:45 PM) 72 bpm (02/20/24 1:30 PM) Respiratory Rate 22 br/min (02/20/24 2:00 PM) 16 br/min (02/20/24 1:45 PM) 16 br/min (02/20/24 1:30 PM) Blood Pressure 117/73mmHg (02/20/24 2:00 PM) 113/80mmHg (02/20/24 1:45 PM) 116/62mmHg (02/20/24 1:30 PM) Mean Blood Pressure 88 mmHg (02/20/24 2:00 PM) 89 mmHg (02/20/24 1:45 PM) 77 mmHg (02/20/24 1:30 PM) Cuff Pulse Pressure 44 mmHg (02/20/24 2:00 PM) 33 mmHg (02/20/24 1:45 PM) 54 mmHg (02/20/24 1:30 PM) BP Location # 1 Left Arm (02/20/24 2:00 PM) Left Arm, Other: (02/20/24 1:45 PM) Left Arm (02/20/24 1:30 PM) Social History Social History Type Response Smoking Status Never smoked cigaret henrry Sex Male Sex Representation Male (finding) Pre-OP H & P * MD Shemar, Chasity Harrell: PERFORM Event Display: Pre-OP H & P Authored Date: [id number] Interventional Radiology Pre-procedure History and Physical Patient Name: PEG TRAN Date Of : 1940 Medical Record: [id number] Date of Service: 2024-02-20 Planned Procedure: IR NEPH TUBE PLACEMENT Reason For Consult: : Nephrostomy Placement Unilateral History of Present Illness: 83M w/ obstructive right ureteropelvic junction stone s/p unsuccessful ureteroscopy, requesting nephrostomy tube placement. Planning PCNL in April. Past Medical and Surgical History: ACTINIC KERATOSIS, ALLERGIC RHINITIS, Anal Fissure, Back pain, BPH associated with nocturia, Cerumen impaction, DYSPEPSIA, Gastritis, Hemiplegia and hemiparesis following cerebral infarction affecting unspecified side, Interstitial pulmonary disease, unspecified, Nephrolithiasis, Orthostatic syncope, Prostate cancer, Recurrent depression, Seborrheic keratosis, inflamed, Tinea corporis, Urticaria,Ventral hernia, Procedure/Surgical History, Lithotripsy| Service Date: 02/10/2022, CT of abdomen and pelvis| Service Date: 05/10/2020, Excision of cataract| Service Date: 02/22/2015, Shave biopsy and cauterization of skin| Service Date: 02/17/2013, umbilical hernia repair, EGD, Prostate biopsy specimen, Tooth extraction, Brain, Partial resection of colon, Cataractsurgery, Allergies: codeine oxycodone tobramycin tylenol versed Medications: aspirin(aspirin 81 mg oral enteric coated tablet), 81 mg= 1 tab, PO, Every other day, atorvastatin(atorvastatin 10 mg oral tablet), 10 mg= 1 tab, PO, Daily, 2 refills, lactulose(lactulose 10 g/15 mL oral syrup), 10 g= 15 mL, PO, Daily, PRN, 2 refills, midodrine(midodrine 2.5 mg oral tablet), 2 tab,PO, tid, multivitamin, 1 tab, PO, Daily, tamsulosin 0.4 mg oral capsule Labs: Date: 02/18/2024 Time: 12:25 Cr 0.71 INR 1 PT 10.5 PTT 27 Hgb 13.5 Plats 254 WBC 7 Other Studies: , *Labs per urology (Dr. Samayoa) e-message labs received from OSH* Physical Exam: LOC / Mental Status: Awake, Alert, Oriented Airway: Mallampati Score: Class 2: Complete visualization of the uvula Lungs: Clear Cardiac: Normal Sinus Rhythm ASA Classification: Class III: Severe systemic disease Assessment: 83M w/ obstructive right ureteropelvic junction stone s/p unsuccessful ureteroscopy, requesting nephrostomy tube placement. Planning PCNL in April. Plan: Nephrostomy Placement Unilateral, RIGHT Sedation / Anesthesia Plan: Moderate Sedation Consent by Patient Electronic Signature on File Electronically Reviewed/Signed by: Chasity Staton MD Author Signature Dt/Tm:02/20/2024 10:19 AM Stitcher Tape Controlled Machine, Interventional Radiology [address], [address] [place] [address] - [facility] Anesthesia records * Services, CPDI: PERFORM Event Display: Sedation & Analgesia Record Authored Date: [id number] Patient Care team information Care Team Personnel Name: DO Lance Kristen M Position: Physician - Family Med Member Role: Primary Care Provider Address: [address] [place] [id number] Name: Lamin Blevins Position: HIS Supervisor_P Member Role: HIS Lifetime Care Team Related Persons Name: MAGALIS SHELDON Name: EB ECHAVARRIA"
[2024-03-07] MEDS: POLYETHYLENE (MIRALAX) 17 GM PACK PO SCH (14:59)
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
[2024-03-07] MEDS: ONDANSETRON INJ 2 MG/ML 2 ML VIAL IV PRN (19:26)
[2024-03-07] MEDS: ONDANSETRON INJ 2 MG/ML 2 ML VIAL IV ONE (23:54)
[2024-03-08] MEDS: PROCHLORPERAZINE 5 MG in SYRINGE 4 ML IV ONE (04:00)
[2024-03-08 07:09] LABS: Basophils # (auto) 0.03 K/uL (0.00-0.20); Basophils % (auto) 0.4 %; Eosinophils # (auto) 0.14 K/uL (0.00-0.50); Eosinophils % (auto) 1.7 %; Hematocrit (blood only) 38.4 % (42.0-52.0); Hemoglobin 12.8 g/dl (14.0-18.0); Immature Granulocytes # (auto) 0.03 K/uL (0.01-0.20); Immature Granulocytes % (auto) 0.4 %; Lymphocytes # (auto) 0.85 K/uL (1.20-3.40); Lymphocytes % (auto) 10.4 %; Mean Corpuscular Hgb Conc 33.3 g/dL (32.0-36.0); Mean Platelet Volume 9.2 fL (9.4-12.4); Monocytes # (auto) 0.68 K/uL (0.11-0.59); Monocytes % (auto) 8.3 %; Neutrophils # (auto) 6.42 K/uL (1.40-6.50); Neutrophils % (auto) 78.8 %; Platelet Count 253 K/uL (130-400); White Blood Count 8.15 K/ul (4.8-10.8)
[2024-03-08 07:23] LABS: BUN Creatinine Ratio 24.6 (10-20); Calcium 8.6 mg/dl (8.6-10.3); Creatinine Clr Calc Pharmacy 100.7 ml/min; Magnesium 1.9 mg/dl (1.7-2.4)
[2024-03-08] MEDS: cefTRIAXone SODIUM 2,000 MG/50 ML BAG IV SCH (08:32)
[2024-03-08] MEDS: ENOXAPARIN INJ 40 MG/0.4 ML SYR SQ SCH (08:34)
--- NOTE | 2024-03-08 10:25 | Urology Progress Note ---
Date of Service March 08, 2024 Assessment & Plan (1) UTI (urinary tract infection): (2) Nephrostomy status: (3) Renal calculus, right: Plan 83-year-old male with a right nephrostomy tube admitted with confusion at home, flank pain, concern for UTI Nephrostomy tube appears to be draining well, and he reports that he is voiding without any issues No plan for surgical intervention at this point Monitor nephrostomy tube output, if this becomes clogged he may require transfer for tube exchange Continue broad-spectrum antibiotics, narrow coverage as culture data becomes available. He can follow-up as an outpatient with his primary urologist for definitive stone removal. Urology will sign off for now, please call with any questions or concerns Admission and Anticipated Discharge Date Admission Date: March 07, 2024 Subjective Feeling well this morning, better than when he came in Tolerating a diet Denies any fevers or chills Denies any significant flank pain Feels like he is voiding well without any dysuria. Urine culture still pending, remains on broad-spectrum antibiotics with ceftriaxone Physical Exam Physical Exam: Well-appearing, seated in bed, NAD Nephrostomy tube draining clear yellow urine Results & Data Vital Signs (Past 12 Hours) Vital Signs Temp Pulse Resp BP Pulse Ox O2 Del Method 03/08/24 08:04 36.7 C 85 16 143/68 H 93 Room Air PG Care Time/CCT Total # of Minutes Spent Total Time Spent with Patient: Total time spent is greater than 50% in coordination of care (as documented) at patient's floor/unit and/or counseling patient: Coding Level of Care Code 78177 SUB INP/OBS CARE 25MIN Diagnoses UTI (urinary tract infection) N39.0 Nephrostomy status Z93.6 Renal calculus, right N20.0
--- NOTE | 2024-03-08 22:49 | Hospitalist Progress Note ---
Date of Service March 08, 2024 Assessment & Plan (1) Acute cystitis: Plan: In setting of obstructive nephrolithiasis s/p R nephrostomy tube - Admit to med/surg - Regular diet ordered - VS per unit protocol - Continue ceftriaxone 2g IV daily - Urine cultured, follow results and tailor abx accordingly Results unavialble. - Urology consulted, appreciate assistance - IVF with NSS at 100 ml/hr - Pain control ordered w/ APAP for mild pain, IV Dilaudid 0.5mg q4 for mod pain and 1mg q4 for severe pain (2) Renal calculus, right: Plan: Chronic - S/p nephrostomy tube as noted above - F/u with [facility] [place] - Urology on consult - Pain control as outlined above (3) BPH with obstruction/lower urinary tract symptoms: Plan: Chronic w/ history of prostate CA - continue tamsulosin (4) Anxiety and depression: Plan: Chronic - continue fluoxetine Plan Chronic stable medical problems: - HLD - continue atorvastatin - GERD - continue protonix DVT ppx with Lovenox 40mg sq daily. AM labs ordered. PT/OT eval. Awaiting placement. Admission and Anticipated Discharge Date Admission Date: March 07, 2024 Subjective Patient reports feeling much better with the antibiotics. Review of Systems Review of Systems: All systems reviewed & are unremarkable except as noted in HPI & below Physical Exam Physical Exam: Well-appearing, seated in bed, NAD Nephrostomy tube draining clear yellow urine Results & Data Results & Data Vital Signs (Past 12 Hours) Vital Signs Temp Pulse Pulse Resp BP BP Pulse Ox 03/08/24 21:11 36.5 C 71 18 115/68 96 03/08/24 14:59 36.4 C L 72 16 134/72 95 O2 Del Method 03/08/24 21:11 Room Air 03/08/24 14:59 Room Air PG Care Time/CCT Total # of Minutes Spent Total Time Spent with Patient: Total time spent is greater than 50% in coordination of care (as documented) at patient's floor/unit and/or counseling patient: Coding Level of Care Code 99681 SUB INP/OBS CARE 2/35MIN Diagnoses Acute cystitis without hematuria N30.00 Hematuria presence: without hematuria Renal calculus, right N20.0 BPH with obstruction/lower urinary tract symptoms N40.1; N13.8 Anxiety and depression F41.9; F32.A (1) Acute cystitis Hematuria presence: without hematuria Qualified Code(s): N30.00 - Acute cystitis without hematuria
[2024-03-09 06:06] LABS: Hemoglobin 12.2 g/dl (14.0-18.0); Mean Corpuscular Hemoglobin 31.5 pg (25.0-34.0); Mean Corpuscular Volume 95.6 fL (80.0-100.0); Mean Platelet Volume 9.2 fL (9.4-12.4); Platelet Count 230 K/uL (130-400); RDW Standard Deviation 45.3 fL (36.4-46.3); Red Blood Count 3.87 M/uL (4.70-6.10); White Blood Count 7.38 K/ul (4.8-10.8)
[2024-03-09 06:32] LABS: Anion Gap 3 (3-11); BUN Creatinine Ratio 20.3 (10-20); Blood Urea Nitrogen 14 mg/dl (6-23); Calcium 8.7 mg/dl (8.6-10.3); Carbon Dioxide 27 mmol/L (21-32); Chloride 106 mmol/L (98-107); Glucose 95 mg/dl (70-99(Fasting)); Sodium 136 mmol/L (136-145)
[2024-03-10] MEDS: SULFAMETHOXAZOLE/TRIMETHOPRIM DS 800/160MG TAB PO SCH (10:33)
--- NOTE | 2024-03-10 14:56 | Hospitalist Progress Note ---
Date of Service March 10, 2024 Assessment & Plan (1) Infection associated with indwelling urinary catheter: Plan: right-sided nephrostomy tube related UTI (complicated UTI) UTI 2nd to Myroides species highly resistant, but susceptible to bactrim stop rocephin change to bactrim Rx for 10 days appreciate ID consultation appreciate urology consultation (2) Acute cystitis: Plan: In setting of obstructive nephrolithiasis s/p R nephrostomy tube at [facility] earlier this month see #1 above patient is nontoxic and doing well (3) Renal calculus, right: Plan: Chronic S/p nephrostomy tube on right - placed at [facility] earlier in February Has definitive surgery scheduled for 05/09/24 by the family's report no flank pain at this time nephrostomy tube draining without issue no hematuria (4) BPH with obstruction/lower urinary tract symptoms: Plan: Chronic w/ history of prostate CA Cont tamsulosin (5) Anxiety and depression: Plan: continue fluoxetine (6) Nephrostomy status: Plan: right (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, mild, left-sided hemiparesis Cont asa & statin for secondary prevention Plan DVT Proph - lovenox daily Check BMP in am Pt's daughter updated by phone this evening Dispo - SNF for rehab Admission and Anticipated Discharge Date Admission Date: March 07, 2024 Subjective patient feeling well denies any complaints no flank pain no abd pain eating very well anxious to get out of hospital has chronic left-sided weakness from prior stroke - no change from baseline Review of Systems Review of Systems: gen - no fevers or chills cv - no chest pain pulm - no dyspnea GI - no N/V Physical Exam Physical Exam: gen - NAD, very pleasant mouth - MMM neck - no JVD heart - RRR, s1 s2 lungs - CTA b/l abd - soft NT ND BS+; right flank - nephrostomy tube in place, clear yellow urine in bag; no hematuria ext - no edema, pulses 2+ b/l psych - a/o x 3 Results & Data Results & Data Vital Signs (Past 12 Hours) Vital Signs Temp Pulse Resp BP BP Pulse Ox O2 Del Method 03/10/24 12:12 88 121/77 03/10/24 08:05 104/71 03/10/24 07:34 36.7 C 74 18 155/83 H 96 Room Air 03/10/24 07:05 Room Air Laboratory Results Microbiology 03/07/24 04:40 Urine,Clean Catch Urine Culture - Final Myroides species Myroides species#2 PG Care Time/CCT Total # of Minutes Spent Total Time Spent with Patient: Total time spent is greater than 50% in coordination of care (as documented) at patient's floor/unit and/or counseling patient: Coding Level of Care Code 55919 SUB INP/OBS CARE 2/35MIN Diagnoses Infection associated with indwelling urinary catheter T83.511A Acute cystitis without hematuria N30.00 Hematuria presence: without hematuria Renal calculus, right N20.0 BPH with obstruction/lower urinary tract symptoms N40.1; N13.8 Anxiety and depression F41.9; F32.A Nephrostomy status Z93.6 Basal ganglia stroke I63.81 (2) Acute cystitis Hematuria presence: without hematuria Qualified Code(s): N30.00 - Acute cystitis without hematuria
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
[2024-03-10] MEDS: ACETAMINOPHEN 325 MG TAB PO PRN (21:49)
[2024-03-11 08:15] LABS: BUN Creatinine Ratio 16.3 (10-20); Calcium 9.3 mg/dl (8.6-10.3); Creatinine Clr Calc Pharmacy 76.8 ml/min
--- NOTE | 2024-03-11 18:08 | Hospitalist Progress Note ---
Date of Service March 11, 2024 Assessment & Plan (1) Infection associated with indwelling urinary catheter: Plan: right-sided nephrostomy tube related UTI (complicated UTI) UTI 2nd to Myroides species highly resistant, but susceptible to bactrim day #2 of bactrim BID Rx for 10 days appreciate ID consultation and recs appreciate urology consultation (2) Acute cystitis: Plan: In setting of obstructive nephrolithiasis s/p R nephrostomy tube at [facility] earlier this month see #1 above patient is nontoxic and doing well (3) Renal calculus, right: Plan: Chronic S/p nephrostomy tube on right - placed at [place] earlier in February Has definitive surgery scheduled for 05/09/24 by the family's report no flank pain at this time nephrostomy tube draining without issue no hematuria (4) BPH with obstruction/lower urinary tract symptoms: Plan: Chronic w/ history of prostate CA Cont tamsulosin (5) Anxiety and depression: Plan: continue fluoxetine (6) Nephrostomy status: Plan: right (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, mild, left-sided hemiparesis Cont asa & statin for secondary prevention Plan DVT Proph - lovenox daily BMP today wnl including his potassium level Pt's daughter updated by phone 03/10/24 Dispo - SNF for rehab; referrals have been made by social work Admission and Anticipated Discharge Date Admission Date: March 07, 2024 Subjective patient feeling well he is very irritated that he is still in the hospital denies all complaints eating well last stool - 03/09/24 Review of Systems Review of Systems: CV - no chest pain pulm - no dyspnea GI - no abd pain or N/V Physical Exam Physical Exam: gen - NAD, irritable today mouth - MMM neck - no JVD heart - RRR, s1 s2, no murmur lungs - CTA b/l abd - soft NT ND BS+; right flank - nephrostomy tube in place, clear yellow urine in bag; no hematuria ext - no edema, pulses 2+ b/l psych - awake, alert Results & Data Results & Data Vital Signs (Past 12 Hours) Vital Signs Temp Pulse Resp BP Pulse Ox O2 Del Method 03/11/24 14:25 36.4 C L 88 18 134/80 93 Room Air 03/11/24 07:34 36.4 C L 80 18 127/79 95 Room Air Laboratory Results Laboratory Results - last 24 hr 03/11/24 07:04 Sodium 136 Potassium 4.0 Chloride 104 Carbon Dioxide 26 Anion Gap 6 BUN 13 Creatinine 0.80 Est Cr Clr Drug Dosing 76.8 eGFR 87.81 BUN/Creatinine Ratio 16.3 Glucose 92 Calcium 9.3 PG Care Time/CCT Total # of Minutes Spent Total Time Spent with Patient: Total time spent is greater than 50% in coordination of care (as documented) at patient's floor/unit and/or counseling patient: Coding Level of Care Code 94184 SUB INP/OBS CARE 06/14MIN Diagnoses Infection associated with indwelling urinary catheter T83.511A Acute cystitis without hematuria N30.00 Hematuria presence: without hematuria Renal calculus, right N20.0 BPH with obstruction/lower urinary tract symptoms N40.1; N13.8 Anxiety and depression F41.9; F32.A Nephrostomy status Z93.6 Basal ganglia stroke I63.81 (2) Acute cystitis Hematuria presence: without hematuria Qualified Code(s): N30.00 - Acute cystitis without hematuria
--- NOTE | 2024-03-12 19:26 | Hospitalist Progress Note ---
Date of Service March 12, 2024 Assessment & Plan (1) Infection associated with indwelling urinary catheter: Plan: right-sided nephrostomy tube related UTI (complicated UTI) UTI 2nd to Myroides species highly resistant, but susceptible to bactrim day #3 of bactrim BID Rx for 10 days appreciate ID consultation and recs appreciate urology consultation recheck BMP in am to ensure stable Cr and stable K in light of bactrim use (2) Acute cystitis: Plan: In setting of obstructive nephrolithiasis s/p R nephrostomy tube at [facility] earlier this month see #1 above patient is nontoxic and doing well (3) Renal calculus, right: Plan: Chronic S/p nephrostomy tube on right - placed at [place] earlier in February Has definitive surgery scheduled for 05/09/24 by the family's report no flank pain at this time nephrostomy tube draining without issue no hematuria no plans to replace/swap the nephrostomy tube (I confirmed this with 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 Admission and Anticipated Discharge Date Admission Date: March 07, 2024 Subjective no events pt reports boredom; anxious to leave hospital eating well last documented stool - 03/09/24 we discussed possible Tx to [facility] tomorrow Review of Systems Review of Systems: cv - no chest pain pulm - no dyspnea GI - no abd pain or N/V Physical Exam Physical Exam: gen - NAD, pleasant today mouth - MMM neck - no JVD heart - RRR, s1 s2, no murmur lungs - CTA b/l abd - soft NT ND BS+; right flank - nephrostomy tube in place, clear yellow urine in bag; no hematuria ext - no edema, pulses 2+ b/l psych - awake, alert Results & Data Results & Data Vital Signs (Past 12 Hours) Vital Signs Temp Pulse Resp BP Pulse Ox O2 Del Method 03/12/24 13:58 36.4 C L 91 H 18 138/78 94 Room Air 03/12/24 08:42 Room Air PG Care Time/CCT Total # of Minutes Spent Total Time Spent with Patient: Total time spent is greater than 50% in coordination of care (as documented) at patient's floor/unit and/or counseling patient: Coding Level of Care Code 64683 SUB INP/OBS CARE 06/14MIN Diagnoses Infection associated with indwelling urinary catheter T83.511A Acute cystitis without hematuria N30.00 Hematuria presence: without hematuria Renal calculus, right N20.0 BPH with obstruction/lower urinary tract symptoms N40.1; N13.8 Anxiety and depression F41.9; F32.A Nephrostomy status Z93.6 Basal ganglia stroke I63.81 (2) Acute cystitis Hematuria presence: without hematuria Qualified Code(s): N30.00 - Acute cystitis without hematuria
[2024-03-13] MEDS: MAGNESIUM HYDROXIDE SUSP 30 ML UDC PO PRN (07:54)
[2024-03-13 08:01] LABS: BUN Creatinine Ratio 18.3 (10-20); Calcium 9.5 mg/dl (8.6-10.3); Creatinine Clr Calc Pharmacy 66.1 ml/min; Potassium 4.8 mmol/L (3.5-5.1)
--- NOTE | 2024-03-13 11:26 | XRay Report ---
XR abdomen 2V w PA chest HISTORY: 83 years-old Male vomiting, ?ileus, constipation? other? Acute chest and abdominal pain COMPARISON: CT abdomen and pelvis 03/07/2024 TECHNIQUE: PA view of the chest with erect and supine views of the abdomen FINDINGS: Mild right hemidiaphragmatic elevation. Heart is upper limits of normal in size. No pneumothorax, ple ural effusion or airspace consolidation. Degenerative changes of the shoulders and spine. Prior ventral abdominal wall herniorrhaphy. No pneumoperitoneum. Right-sided percutaneous nephrostomy catheter with right nephrolithiasis redemonstrated. The previously noted calculus in the left renal pelvis is not definitively seen. Study is limited secondary to obscuring bowel gas with moderate feca l retention. There are also noted within the large bowel. Scattered small bowel air-fluid levels note d within the right abdomen. Small bowel loops measure up to 3 cm. No acute fracture. IMPRESSION: 1. No acute process of the chest. 2. No pneumoperitoneum. 3. Borderline dilated loops of small bowel in the right abdomen with air-fluid levels favors an ileus . A low-grade obstruction could appear similarly. Follow-up recommended. 3. Moderate colonic fecal retention. 4. Percutaneous right nephrostomy catheter with nephrolithiasis redemonstrated. ACT 112: Negative or not required by law. The above report was generated using voice recognition software. It may contain grammatical, syntax o r spelling errors. Electronically signed by: Bryan Woodard M.D. 03/13/2024 11:24 AM
[2024-03-13] MEDS: FAMOTIDINE 20MG IV PUSH 20 MG/5 ML SYR IV STA (11:54)
[2024-03-13] MEDS: bisacodyL 10 MG SUPP PR STA (11:54)
[2024-03-13] MEDS: SODIUM ZIRCONIUM CYCLOSILICATE 10 GM PACKET PO SCH (13:50)
[2024-03-13] MEDS: SOD PHOSPHATE/SOD BIPHOSPHATE ENEMA 132 ML BTL PR STA (16:20)
--- NOTE | 2024-03-13 19:21 | Hospitalist Progress Note ---
Date of Service March 13, 2024 Assessment & Plan (1) Constipation: Plan: patient had nausea with emesis this am did not eat his breakfast or lunch no stools in 4-5 days abd x-rays obtained - moderate-severe constipation seen; a few loops of bowel in the right abdomen are top-normal in diameter; suspect that his emesis this am is constipation-related but some other process could be brewing as well s/p enema with very good results from such despite the clean-out he had a very poor dinner meal I repeated a focused abd exam about 6pm this evening - bowel sounds hyperactive, mildly distended (generalized), but no peritoneal signs I recommended to his daughter that we keep him overnight for observation see if he has more BMs and I want to be sure he is eating/drinking more robustly before going home daughter very agreeable to this (2) Infection associated with indwelling urinary catheter: Plan: right-sided nephrostomy tube related UTI (complicated UTI) UTI 2nd to Myroides species highly resistant, but susceptible to bactrim day #4 of bactrim BID Rx for 10 days appreciate ID consultation and recs appreciate urology consultation recheck BMP in am to ensure stable Cr and stable K in light of bactrim use of note - K petr from 4 to 4.8 in just 24 hours suspect it is bactrim related will give lokelma x 1 as I suspect the K will just continue to rise BMP am (3) Acute cystitis: Plan: In setting of obstructive nephrolithiasis s/p R nephrostomy tube at [facility] earlier this month see #1 above (4) Renal calculus, right: Plan: Chronic S/p nephrostomy tube on right - placed at [place] earlier in February Has definitive surgery scheduled for 05/09/24 by the family's report no flank pain at this time nephrostomy tube draining without issue no hematuria no plans to replace/swap the nephrostomy tube (I confirmed this with [facility]) (5) BPH with obstruction/lower urinary tract symptoms: Plan: Chronic w/ history of prostate CA Cont tamsulosin (6) Anxiety and depression: Plan: continue fluoxetine (7) Nephrostomy status: Plan: right (8) 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, mild, left-sided hemiparesis Cont asa & statin for secondary prevention Plan DVT Proph - lovenox daily Pt's daughter updated by phone 03/10/24 and 03/12, then updated at bedside today Dispo - home with HH and home PT/OT his insurance denied SNF rehab despite me completing peer to peer request hopefully home tomorrow Admission and Anticipated Discharge Date Admission Date: March 07, 2024 Subjective no BM in 4-5 days this am he vomited he blames the vomiting on "my nerves" he is anxious to go home and is agitated that he is still here did tell him that his insurance requested peer to peer review for SNF auth he did not eat any breakfast did not eat any lunch I completed the peer to peer late AM unfortunately his insurance denied SNF rehab his insurance stated he could simply go home I updated the pt's 2 daughters at bedside in the early afternoon they are aware of SNF denial they plan to simply take him home with services we discussed his constipation in detail reviewed with them that his x-ray showed copious stool discussed PO meds vs enema (dulcolax suppos did not work unfortunately) family requested enema enema give mid-afternoon with LARGE amount of stool obtained Review of Systems Review of Systems: CV - no chest pain gen - poor appetite today; he ultimately ate very little dinner either GI - no pain, but had nausea/emesis this am; had had constipation - now improved s/p enema Physical Exam Physical Exam: gen - NAD, very agitated, upset at me mouth - MMM neck - no JVD heart - RRR, s1 s2, no murmur lungs - CTA b/l abd - soft NT ND BS+; right flank - nephrostomy tube in place; no peritoneal signs ext - no edema, pulses 2+ b/l psych - awake, alert - agitated, upset Results & Data Results & Data Vital Signs (Past 12 Hours) Vital Signs Temp Pulse Resp BP Pulse Ox O2 Del Method 03/13/24 16:09 36.5 C 98 H 18 137/83 98 Room Air 03/13/24 07:24 36.7 C 94 H 18 133/78 98 Room Air Laboratory Results Laboratory Results - last 24 hr 03/13/24 06:44 Sodium 137 Potassium 4.8 Chloride 103 Carbon Dioxide 27 Anion Gap 7 BUN 17 Creatinine 0.93 Est Cr Clr Drug Dosing 66.1 eGFR 81.47 BUN/Creatinine Ratio 18.3 Glucose 99 Calcium 9.5 Diagnostic Findings Chest/Abdomen X-ray 03/13/24 10:24 XR abdomen 2V w PA chest HISTORY: 83 years-old Male vomiting, ?ileus, constipation? other? Acute chest and abdominal pain COMPARISON: CT abdomen and pelvis 03/07/2024 TECHNIQUE: PA view of the chest with erect and supine views of the abdomen FINDINGS: Mild right hemidiaphragmatic elevation. Heart is upper limits of normal in size. No pneumothorax, pleural effusion or airspace consolidation. Degenerative changes of the shoulders and spine. Prior ventral abdominal wall herniorrhaphy. No pneumoperitoneum. Right-sided percutaneous nephrostomy catheter with right nephrolithiasis redemonstrated. The previously noted calculus in the left renal pelvis is not definitively seen. Study is limited secondary to obscuring bowel gas with moderate fecal retention. There are also noted within the large bowel. Scattered small bowel air-fluid levels noted within the right abdomen. Small bowel loops measure up to 3 cm. No acute fracture. IMPRESSION: 1. No acute process of the chest. 2. No pneumoperitoneum. 3. Borderline dilated loops of small bowel in the right abdomen with air-fluid levels favors an ileus. A low-grade obstruction could appear similarly. Follow- up recommended. 3. Moderate colonic fecal retention. 4. Percutaneous right nephrostomy catheter with nephrolithiasis redemonstrated. ACT 112: Negative or not required by law. The above report was generated using voice recognition software. It may contain grammatical, syntax or spelling errors. Electronically signed by: Bryan Woodard M.D. 03/13/2024 11:24 AM PG Care Time/CCT Total # of Minutes Spent Total Time Spent with Patient: Total time spent is greater than 50% in coordination of care (as documented) at patient's floor/unit and/or counseling patient: Coding Level of Care Code 78109 SUB INP/OBS CARE 3/50MIN Diagnoses Constipation K59.00 Constipation type: unspecified constipation type Infection associated with indwelling urinary catheter T83.511A Acute cystitis without hematuria N30.00 Hematuria presence: without hematuria Renal calculus, right N20.0 BPH with obstruction/lower urinary tract symptoms N40.1; N13.8 Anxiety and depression F41.9; F32.A Nephrostomy status Z93.6 Basal ganglia stroke I63.81 (1) Constipation Constipation type: unspecified constipation type Qualified Code(s): K59.00 - Constipation, unspecified (3) Acute cystitis Hematuria presence: without hematuria Qualified Code(s): N30.00 - Acute cystitis without hematuria
[2024-03-14 07:30] VITALS: BP 133/76; PULSE 84; RESP 20; TEMP 97.4; O2SAT 94
[2024-03-14 08:29] LABS: Calcium 9.6 mg/dl (8.6-10.3); Magnesium 2.2 mg/dl (1.7-2.4); Potassium 4.6 mmol/L (3.5-5.1)
--- NOTE | 2024-03-14 10:39 | Discharge Summary ---
Discharge Summary Date of Service March 14, 2024 Principal Dx & Hospital Course #1 = Principal Diagnosis (1) Constipation: patient had nausea with emesis this am did not eat his breakfast or lunch no stools in 4-5 days abd x-rays obtained - moderate-severe constipation seen; a few loops of bowel in the right abdomen are top-normal in diameter; suspect that his emesis this am is constipation-related but some other process could be brewing as well s/p enema with very good results from such despite the clean-out he had a very poor dinner meal I repeated a focused abd exam about 6pm this evening - bowel sounds hyperactive, mildly distended (generalized), but no peritoneal signs I recommended to his daughter that we keep him overnight for observation see if he has more BMs and I want to be sure he is eating/drinking more robustly before going home daughter very agreeable to this (2) Infection associated with indwelling urinary catheter: right-sided nephrostomy tube related UTI (complicated UTI) UTI 2nd to Myroides species highly resistant, but susceptible to bactrim day #4 of bactrim BID Rx for 10 days appreciate ID consultation and recs appreciate urology consultation recheck BMP in am to ensure stable Cr and stable K in light of bactrim use of note - K petr from 4 to 4.8 in just 24 hours suspect it is bactrim related will give lokelma x 1 as I suspect the K will just continue to rise BMP am (3) Acute cystitis: In setting of obstructive nephrolithiasis s/p R nephrostomy tube at [facility] earlier this month see #1 above (4) Renal calculus, right: Chronic S/p nephrostomy tube on right - placed at [facility] earlier in February Has definitive surgery scheduled for 05/09/24 by the family's report no flank pain at this time nephrostomy tube draining without issue no hematuria no plans to replace/swap the nephrostomy tube (I confirmed this with [facility]) (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 w/ history of prostate CA Cont tamsulosin (6) Anxiety and depression: continue fluoxetine (7) Nephrostomy status: right (8) Basal ganglia stroke: RIGHT with resulting, mild, left-sided hemiparesis Cont asa & statin for secondary prevention Plan DVT Proph - lovenox daily Pt's daughter updated by phone 03/10/24 and 03/12, then updated at bedside today Dispo - home with HH and home PT/OT his insurance denied SNF rehab despite me completing peer to peer request hopefully home tomorrow Admission HPI Per Admitting Provider Dewey Luu) is an 83 yo M with a pmhx of HLD, depression, GERD, BPH with LUTS, nephrolithiasis and recent history of obstructing right UPJ stone s/p nephrostomy tube placement at [facility] earlier this month who presents to the ER today c/o severe right sided flank pain. He reports symptoms of right flank pain with associated nausea with some vomiting, no fever or chills. He also endorses constipation. He has been able to eat and drink, but family does not feel that he is drinking enough. He is also having some increased confusion per family. He lives alone but his step-daughter lives next door and checks on him twice a day. He currently is awake and alert and comfortable. His ER w/u demonstrates a grossly infected urine, normal wbc count, afebrile otherwise HD stable. A CTAP performed showing nonobstructing bilateral renal calculi, presence of nephrostomy tube on right, and diffuse bladder wall thickening with gas in the bladder dome and perivesicular stranding. He was medicated in the ER with a dose of ceftriaxone 2g, 1L of NSS, fentanyl for pain, and zofran. Case was d/w urology who felt that he could be admitted and managed conservatively with IV antibiotics. Patient has been referred for admission to hospital medicine service. Discharge Exam gen - NAD, very agitated, upset at me mouth - MMM neck - no JVD heart - RRR, s1 s2, no murmur lungs - CTA b/l abd - soft NT ND BS+; right flank - nephrostomy tube in place; no peritoneal signs ext - no edema, pulses 2+ b/l psych - awake, alert - agitated, upset Discharge Plan Discharge Items Patient Disposition: Home - Home Health Services Reason For Visit: FLANK PAIN Discharge Diagnosis: 1. Urinary tract infection - improved 2. Constipation - improved 3. Right-sided nephrostomy tube - functioning well 4. Right-sided kidney stone - stable 5. Low-normal vitamin B12 level (279) Activity: Resume your previous activity Activity Comment: as tolerated Non-emergency contact: Primary Care Provider and Urologist Call non-emergency contact if: you have any medication questions, your symptoms worsen, your pain is not controlled, your pain is worsening and you have a fever Follow-up/Referrals: Blake Ceballos MD [Physician] - (if you have any general concerns regarding your urinary tract you can contact [facility] at the number listed here ) Brigitte Lance DO [Primary Care Provider] - 03/17/24 12:45 pm Diet: Low Potassium (2gm) Ambulatory Orders: Basic Metabolic Panel (Routine) Timeframe: [id number] Location: Determined by Patient Ordered By: Cassius Cordova Attending Provider Instructions: Mr Daljit, You were admitted to the hospital for urinary tract infection ("UTI"). Your flank pain and other symptoms were likely due to the UTI. [facility] saw you in consult and they advised antibiotics for your infection. They were satisfied with the function of your nephrostomy tube. They recommended ongoing follow-up with [facility] for the tube and the kidney stone. Infectious diseases saw you in consult and they recommended 10 days in total of antibiotics for your UTI. Finally, you developed severe constipation during the stay but this improved with multiple bowel agents. Recommendations - 1. trimethoprim-sulfa -- 1 tablet twice daily x 6 days, first dose TONIGHT; this is your antibiotic. 2. consider taking an iklx-tec-sxwsndr probiotic supplement daily for the next week. 3. for prevention/treatment of constipation you can do 1 or more of the following medicines - * miralax one serving daily * senakot 2 tablets daily * lactulose 1 serving daily (your family mentioned you have this at home) * shoot for 1 soft bowel movement every 1-2 days 4. continue to flush your nephrostomy tube daily as previously recommended by [facility] . 5. continue to change the dressing around your catheter site every other day and as needed. 6. purchase mqpw-ivx-pfhbvvb vitamin B12 and take 1000mcg (1mg) once daily for about 6 months. 7. have a blood draw either Sunday, March 17 or Sunday, March 18. This is to recheck your potassium level & kidney function. You can have the blood draw at any [facility] lab. You don't have to fast for the blood draw. 8. please follow a low-potassium diet for the next 6-7 days; see handout. After the antibiotics are finished you can resume a normal diet thereafter. Follow-up - see Dr Lance as scheduled; see [facility] as scheduled for any follow-up appointments regarding the nephrostomy tube & the stone. Return to [facility] if - * you have fever over 100 degrees * you have worsening back pain, abdominal pain, or flank pain * you develop severe diarrhea * you have vomiting * you have shortness of breath * any other concerns It was our pleasure to care for you! Pending Studies at Discharge: No Stand-Alone Forms: My [facility], Smoking Cessation Medications and DC Order Prescriptions: New polyethylene glycol 3350 [Miralax] 17 gram Powder In Packet 17 g PO DAILY Qty: 1 0RF Rx Instructions: purchase rmvo-nqj-xkmzsmn sulfamethoxazole-trimethoprim [Bactrim DS] 800-160 mg Tablet 1 tab PO Q12 6 Days Qty: 12 0RF cyanocobalamin (vitamin B-12) 1,000 mcg tablet 1,000 mcg PO DAILY Qty: 90 1RF Rx Instructions: purchase pfnv-hqp-gohnwed Continued aspirin 81 mg Tablet,Delayed Release (Dr/Ec) 81 mg PO QAM midodrine 2.5 mg Tablet 5 mg PO TID@0800,1200,1700 Qty: 100 0RF atorvastatin 10 mg Tablet 10 mg PO QAM tamsulosin [Flomax] 0.4 mg Capsule 0.4 mg PO QAM pantoprazole 40 mg Tablet,Delayed Release (Dr/Ec) 40 mg PO DAILY fluoxetine 20 mg Capsule 20 mg PO DAILY calcitriol 0.25 mcg Capsule 0.25 mcg PO DAILY Discharge Orders: Discharge Order (Routine); Ordered 03/14/24 Ordered By: Cassius Mckeon/Other Patient Handouts: Low Potassium Diet Dc Admission Data Admit Date/Time: 03/07/24 08:55 Attending Provider: Cassius Ortega Admit Provider: Ronaldo Kruger Primary Care Provider: Brigitte Lance Other Providers: Blake Ceballos; Ronaldo Kruger; [place]; [facility]; [place] Stay Data Consultations 03/07/24 08:13 Consult Urology Routine 03/07/24 08:37 ED Decision to Admit Stat 03/10/24 09:56 Consult Infectious Diseases Routine Diagnostic Imagining Performed 03/07/24 03:57 CT abd pelvis wo con Stat Pending Results Patient Have Any Pending Studies at Discharge: No Discharge Instructions Given to Patient (Per Discharging Provider) Mr Bocanegra, Raghavendra were admitted to the hospital for urinary tract infection ("UTI"). Your flank pain and other symptoms were likely due to the UTI. [facility] saw you in consult and they advised antibiotics for your infection. They were satisfied with the function of your nephrostomy tube. They recommended ongoing follow-up with [facility] for the tube and the kidney stone. Infectious diseases saw you in consult and they recommended 10 days in total of antibiotics for your UTI. Finally, you developed severe constipation during the stay but this improved with multiple bowel agents. Recommendations - 1. trimethoprim-sulfa -- 1 tablet twice daily x 6 days, first dose TONIGHT; this is your antibiotic. 2. consider taking an tapl-kgv-lwfhykc probiotic supplement daily for the next week. 3. for prevention/treatment of constipation you can do 1 or more of the following medicines - * miralax one serving daily * senakot 2 tablets daily * lactulose 1 serving daily (your family mentioned you have this at home) * shoot for 1 soft bowel movement every 1-2 days 4. continue to flush your nephrostomy tube daily as previously recommended by [facility] . 5. continue to change the dressing around your catheter site every other day and as needed. 6. purchase ihxr-ywx-msubzvh vitamin B12 and take 1000mcg (1mg) once daily for about 6 months. 7. have a blood draw either Sunday, March 17 or Sunday, March 18. This is to recheck your potassium level & kidney function. You can have the blood draw at any [facility] lab. You don't have to fast for the blood draw. 8. please follow a low-potassium diet for the next 6-7 days; see handout. After the antibiotics are finished you can resume a normal diet thereafter. Follow-up - see Dr Lance as scheduled; see [facility] as scheduled for any follow-up appointments regarding the nephrostomy tube & the stone. Return to [facility] if - * you have fever over 100 degrees * you have worsening back pain, abdominal pain, or flank pain * you develop severe diarrhea * you have vomiting * you have shortness of breath * any other concerns It was our pleasure to care for you! Coding Diagnoses Constipation K59.00 Constipation type: unspecified constipation type Infection associated with indwelling urinary catheter T83.511A Acute cystitis without hematuria N30.00 Hematuria presence: without hematuria Renal calculus, right N20.0 BPH with obstruction/lower urinary tract symptoms N40.1; N13.8 Anxiety and depression F41.9; F32.A Nephrostomy status Z93.6 Basal ganglia stroke I63.81
== END 2024-03-14 11:35 | disposition home health service (06) | DRG 698 ==
LOC: ED 03:40 → EDINP 08:55 → SUATTDRO 08:55 → 3W 17:38

== ENCOUNTER 2024-05-27 10:56 | Observation (INO) ==
--- NOTE | 2024-05-27 11:13 | ED Triage Note ---
Date of Service May 27, 2024 Provider in Triage Author: Renea Angulo History of Present Illness This patient was briefly evaluated while in triage. An abbreviated physical exam was performed. This patient is a 83-year-old Male who presents to the ED for evaluation of left flank pain, chills, weakness. Pt. had surgery for kidney stone removal on the right recently. Has known stone on the left and scheduled for removal on 06/20. States having worsening back pain, chills, constipation, and weakness. Physical Exam VITALS: Vitals are noted on the nurse's note and reviewed by myself. GENERAL: This is an 83 year old male, in no acute distress, nondiaphoretic, well-developed well-nourished. SKIN: No obvious rashes, edema, erythema HEAD: Normocephalic atraumatic. EYES: Conjunctivae without injection, sclerae without icterus. NECK: No JVD. LUNGS: No retractions or accessory muscle use. MUSCULOSKELETAL: Full ROM of extremities NEURO: Patient was alert and oriented to person place and time. No focal neurological deficits. Initial orders for labs and / or imaging were placed and patient was placed in the waiting area until a bed is available. Please see further documentation for the full ED course.
[2024-05-27 12:00] LABS: Basophils # (auto) 0.06 K/uL (0.00-0.20); Basophils % (auto) 0.8 %; Eosinophils # (auto) 0.27 K/uL (0.00-0.50); Eosinophils % (auto) 3.6 %; Hematocrit (blood only) 39.8 % (42.0-52.0); Hemoglobin 13.2 g/dl (14.0-18.0); Immature Granulocytes # (auto) 0.04 K/uL (0.01-0.20); Immature Granulocytes % (auto) 0.5 %; Lymphocytes # (auto) 1.16 K/uL (1.20-3.40); Lymphocytes % (auto) 15.7 %; Mean Corpuscular Hemoglobin 32.4 pg (25.0-34.0); Mean Corpuscular Hgb Conc 33.2 g/dL (32.0-36.0); Mean Corpuscular Volume 97.5 fL (80.0-100.0); Monocytes # (auto) 0.58 K/uL (0.11-0.59); Monocytes % (auto) 7.8 %; Neutrophils # (auto) 5.29 K/uL (1.40-6.50); Neutrophils % (auto) 71.6 %; Platelet Count 317 K/uL (130-400); RDW Coefficient of Variation 13.4 % (11.5-14.5); RDW Standard Deviation 48.7 fL (36.4-46.3); Red Blood Count 4.08 M/uL (4.70-6.10)
[2024-05-27 12:07] LABS: Appearance Urine Turbid (Clear); Bilirubin Urine 1+ (Negative); Blood Urine 3+ (Negative); Color Urine Red; Epithelial Cell Urine Auto 0-2 /hpf (0-2); Glucose Urine UA Negative (Negative); Ketones Urine Negative (Negative); Leukocyte Esterase Urine 3+ (Negative); Nitrite Urine Negative (Negative); Protein Urine 3+ (Negative); RBC Urine Automated >20 /hpf (0-2); Specific Gravity Urine 1.022 (1.000-1.030); Urobilinogen Urine Negative (Negative)
[2024-05-27 12:20] LABS: Albumin Globulin Ratio 1.5 (0.9-2); Albumin Level 3.9 gm/dl (3.4-5.0); BUN Creatinine Ratio 26.7 (10-20); Bilirubin,Total 0.9 mg/dl (0.2-1.0); Calcium 9.3 mg/dl (8.6-10.3); Creatinine Clr Calc Pharmacy 78.7 ml/min; Globulin 2.6 gm/dl (2.5-4.0); Potassium 4.1 mmol/L (3.5-5.1); Total Protein 6.5 gm/dl (6.0-8.3)
[2024-05-27 12:22] LABS: Bacteria Urine Automated 1+ (None Seen); Cast Urine Automated 0-2 /lpf (0-2)
[2024-05-27 12:23] LABS: WBC Urine Automated 21-50 /hpf (0-5)
--- NOTE | 2024-05-27 12:29 | CT Scan Report ---
ABDOMEN AND PELVIS CT WITHOUT CONTRAST CT DOSE: 913.12 mGy.cm HISTORY: left flank pain TECHNIQUE: Multiaxial CT images of the abdomen and pelvis were performed without contrast. A dose lo wering technique was utilized adhering to the principles of ALARA. COMPARISON STUDY: 04/30/2024 FINDINGS: ABDOMEN: There are a few stable small liver cysts. There are gallstones without evidence of acute cho lecystitis. Otherwise the liver, gallbladder, spleen, pancreas, and adrenal glands have an unremarkab le non-IV contrast appearance. There are bilateral well positioned ureteral stents. There are a few r ight renal calculi measuring up to 1 cm. There is no hydronephrosis on the right. There is mild hydro nephrosis on the left. There are a few small left renal calculi. No ureteral calculi seen. There are scattered atherosclerotic calcifications. Infrarenal abdominal aorta measures 2.8 cm greatest AP dime nsion, stable. Pelvis: Stable prior ventral hernia repair. Prostate is prominently enlarged. Urinary bladder is mild ly distended. There is minimal inflammation adjacent to the bladder, possible cystitis. There is mild colonic diverticulosis. No acute diverticulitis. No free fluid or free air. No enlarged adenopathy. Osseous structures: There is lumbar degenerative disc disease. IMPRESSION: 1. Well-positioned bilateral ureteral stents. No hydronephrosis on the right. 2. There is interval mild hydronephrosis on the left, suggesting occlusion of the left ureteral stent . 3. Otherwise as described. ACT 112: Negative or not required by law. The above report was generated using voice recognition software. It may contain grammatical, syntax o r spelling errors. Electronically signed by: Kar Posadas M.D. 05/27/2024 12:28 PM
[2024-05-27] MEDS: cefTRIAXone SODIUM 1,000 MG/50 ML BAG IV STA (13:40)
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
[2024-05-27] MEDS ORDERED: ACETAMINOPHEN 325 MG TAB PO PRN (16:45)
[2024-05-27] MEDS ORDERED: ONDANSETRON INJ 2 MG/ML 2 ML VIAL IV PRN (16:45)
[2024-05-27] MEDS ORDERED: MAGNESIUM HYDROXIDE SUSP 30 ML UDC PO PRN (16:45)
[2024-05-27] MEDS ORDERED: MELATONIN 3 MG TAB PO PRN (16:45)
[2024-05-27] MEDS: SODIUM CHLORIDE 0.9% 1,000 ML IV ONE (17:06)
[2024-05-27] MEDS: CEFEPIME 1000MG 1,000 MG/10 ML SYR IV SCH (17:45)
[2024-05-27] MEDS: MIDODRINE HCL 2.5 MG TAB PO SCH (17:45)
[2024-05-27] MEDS: SODIUM CHLORIDE 0.9% 1,000 ML IV SCH (18:09)
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
--- OUTSIDE RECORDS SUMMARY | 2024-05-27 19:02 | External Medical Summary ---
Author Name UNSPECIFIED Address Unknown Organization [facility] History of Encounters Reason for Assessment: Discharge from [facility] Inpatient Facility where the patient been admitted: No inpatient facility admission Discharge Disposition: Patient remained in the community (without formal assistive services) Functional Assessment Bowel Incontinence Frequency: Very rarel y or never has bowel incontinence When Confused (Reported or Observed): In new or complex situations only Cognitive and Behavioral and Psychiatric Symptoms: None Current Ability: Bathing: Able to bathe in shower or tub with the intermittent assistance of another person: (a) for intermittent supervision or encouragement or reminders, OR (b) to get in and out of the shower or tub, OR (c) for washing difficult to reach areas. Current Ability: Ambulation: Requires us e of a two-handed device (e.g., walker or crutches) to walk alone on a level surface and/or requires human supervision or assistance to negotiate stairs or steps or uneven surfaces. Current: Management Of Oral Medications: Able to take medication(s) at the correct times if: (a) individual dosages are prepared in advance by another person; OR (b) another person develops a drug diary or chart
--- OUTSIDE RECORDS SUMMARY | 2024-05-27 19:02 | External Medical Summary | Continuity of Care Document ---
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 Teacher Name Role Phone Brigitte Her Primary Care Physician [phone] [facility]counter [facility] [id number] Date(s): 05/09/24 - 05/09/[address] [phone] Encounter Diagnosis Calculus of kidney(Final) - Benign prostatic hyperplasia without lower urinary tract symptoms(Final) - Other specified disorders of bladder(Final) - Major depressive disorder, recurrent, unspecified(Final) - Essential (primary) hypertension(Final) - Hemiplegia and hemiparesis following cerebral infarction affecting left non- dominant side(Final) - superintendent 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 (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(Final) - Other prison (current) drug therapy(Final) - Personal history of malignant neoplasm of prostate(Final) - Personal history of other malignant neoplasm of skin(Final) - Personal history of irradiation(Final) - Discharge Disposition: Home or Self Care Attending Physician: MD Yao, Jordan Allergies, Adverse Reactions, Alerts Substance Criticality Severity Reaction Reaction Severity Status codeine Hives Active tobramycin Hives Active oxycodone Vomiting Nausea Active Tylenol Hives Active Versed Hives Active Functional Status 05/09/24 Neurological Symptoms None ADLs Independent Facial Symmetry Symmetric Gait Steady Swallowing Difficulty None Level of Consciousness Neuro Alert Hallucinations Present None Speech Pattern Clear 05/09/24 History of Fall in Last 3 Months Flores N o Presence of Secondary Diagnosis Flores Ye s Use of Ambulatory Aid Flores None/bedrest /nurse assist IV/Heparin Lock Fall Risk Flores Yes Gait/Transferring Fall Risk Flores Normal /bedrest/immobile Mental Status Fall Risk Flores Oriented t o own ability Flores Fall Risk Score 35 Flores Fall Risk Low Risk Immunizations Given and Recorded Vaccine Date Status [...] Daily, Disp# 90 tab, Refills: 2, Pharmacy: [facility] Start Date: 09/03/23 Status: Ordered bacitracin 500 units/g topical ointment Start: 05/09/24 12:17:00 PM EST, 1 appl, topical, bid, Disp# 30 g, Apply to tip of penis twice daily for 1 week while healing, Pharmacy: [facility] Start Date: 05/09/24 Status: Ordered calcium (as citrate)-vitamin D 250 mg-5 mcg (200 intl units) oral tablet Start: 02/20/24 9:40:00 AM EDT, 1 tab, PO, bid Start Date: 02/20/24 Status: Ordered Cipro 500 mg oral tablet Start: 05/09/24 12:16:00 PM EST, 1 tab, PO, q12h, Disp# 14 tab, Continue for 1 week after surgery, Pharmacy: [facility] Start Date: 05/09/24 Status: Ordered clotrimazole 1% topical cream Start: 05/09/24 12:17:00 PM EST, 1 appl, topical, bid, Disp# 15 g, Apply to bilateral groin creasesfor 2 weeks. If persistent, please contact your primary care provider -Keep area dry, Pharmacy: [facility] Start Date: 05/09/24 Status: Ordered FLUoxetine 20 mg oral capsule Start: 05/02/24 1:45:00 PM EST, 1 cap, PO, Daily, Disp# 30 cap, Refills: 0, Pharmacy: [facility] Start Date: 05/02/24 Status: Ordered lactulose 10 g/15 mL oral syrup Start: 04/01/24 11:14:00 AM EST, 15 mL, PO, Daily, Disp# 120 mL, Refills: 2, PRN: as needed for constipation, Pharmacy: [facility] Start Date: 04/01/24 Status: Ordered midodrine 2.5 mg oral tablet Start: 04/14/24 12:45:00 PM EST, 2 tab, PO, tid, Disp# 180 tab, Refills: 0, Pharmacy: [facility] Start Date: 04/14/24 Status: Ordered multivitamin Start: 04/26/11 10:10:00 AM EST, 1 tab, PO, Daily, tab Start Date: 04/26/11 Status: Ordered pantoprazole 40 mg oral delayed release tablet Start: 04/16/24 12:15:00 PM EST, 1 tab, PO, Daily, Disp# 30 tab, Refills: 0, Pharmacy: [facility] Start Date: 04/16/24 Status: Ordered phenazopyridine 95 mg oral tablet Start: 05/04/24 5:48:00 PM EST, 1 tab, PO, bid, Disp# 2 tab, Refills: 0, Pleasae start taking one day before surgery and skip on the day of surgery. It will make the urine orange-yellow coloure, PRN:as needed for urinary discomfort, Pharmacy: [facility] Start Date: 05/04/24 Stop Date: 05/05/24 Status: Ordered tamsulosin 0.4 mg oral capsule Start: 10/17/22 2:00:00 PM EDT, See Instructions, Disp# 90 cap, Refills: 2, Take 1 capsule by mouth once daily, Pharmacy: [facility] Start Date: 10/17/22 Status: Ordered Zofran 4 mg oral tablet Start: 03/24/24 1:10:00 PM EST, 1 tab, PO, q8h, Disp# 20 tab, Refills: 0, PRN: as needed for nausea/vomiting, Pharmacy: [facility] Start Date: 03/24/24 Status: Ordered Problem List Condition Confirmation Course Effective Dates Status H ealth Status Informant ACTINIC KERATOSIS Confirmed Active ALLERGIC RHINITIS Confirmed Active Anal Fissure Confirmed Active Back pain Confirmed 09/10/12 Active BPH associated with nocturia Confirmed 04/01/24 Active Constipation, unspecified 1 Confirmed 04/01/24 Active DYSPEPSIA Confirmed Active Elevated blood pressure Confirmed Active Gastritis Confirmed 02/20/12 Active Grieving Confirmed Active Hemiplegia and hemiparesis following cerebral infarction affecting unspecified side Confirmed Active Ventral hernia Confirmed Active Cerumen impaction Confirmed Active Infection associated with indwelling urinary catheter Confirmed Active Interstitial pulmonary disease, unspecified 2 Confirmed Active Renal calculus Confirmed Active Prostate cancer 3 Confirmed Active Nausea 4 Confirmed 04/01/24 Active Nephrolithiasis Confirmed 11/17/12 Active Nocturia 5 Confirmed 04/01/24 Active Pre-op exam Confirmed Active Personal history of skin cancer Confirmed Active Recurrent depression 6 Confirmed Active Nephrostomy status Confirmed Active Orthostatic syncope Confirmed Active Tinea corporis Confirmed Active Upper extremity pain Confirmed 09/10/12 Active Urticaria Confirmed Active 1Added per Socially Responsible Investment Adviser [id number]-86/14/24 2See 08/01/22 Out Note [id number] 06/25/22- CXR Chronic interstitial thickening 3See outside note 11/08/2021 [facility] Radiation Onc visit 11/04/2021 4Added per Socially Responsible Investment Adviser Iiuejg-FU-59/14/24 5Added per Socially Responsible Investment Adviser Mmqadk-VJ-52/14/24 6Duloxetine, escitalopram Procedures Procedure Date Related Diagnosis Body [...] to oldest [Reference Range]: 1 2 3 Height 182 cm (05/09/24 10:10 AM) Patient Weight 73.6 kg (05/09/24 10:10 AM) Body Mass Index 22.22 kg/m2 (05/09/24 10:10 AM) Temperature [36.5-37.9 DegC] 35.9 DegC *LOW* (05/09/24 1:15 PM) 36.3 DegC *LOW* (05/09/24 12:44 PM) 36.3 DegC *LOW* (05/09/24 12:40 PM) Heart Rate 101 bpm (05/09/24 1:15 PM) 95 bpm (05/09/24 12:50 PM) 99 bpm (05/09/24 12:44 PM) Respiratory Rate 18 br/min (05/09/24 1:15 PM) 19 br/min (05/09/24 12:50 PM) 23 br/min (05/09/24 12:44 PM) Blood Pressure 134/74mmHg (05/09/24 1:15 PM) 132/74mmHg (05/09/24 12:50 PM) 133/72mmHg (05/09/24 12:44 PM) Mean Blood Pressure 90 mmHg (05/09/24 1:15 PM) 91 mmHg (05/09/24 12:50 PM) 88 mmHg (05/09/24 12:26 PM) Cuff Pulse Pressure 60 mmHg (05/09/24 1:15 PM) 58 mmHg (05/09/24 12:50 PM) 55 mmHg (05/09/24 12:26 PM) BP Location # 1 Right Arm (05/09/24 1:15 PM) Right Arm, Non-invasive (05/09/24 10:31 AM) Social History Social History Type Response Smoking Status Former Smoker, quit > 1 yr Sex Male Sex Representation Male (finding) Implantable Device List Procedure Provider Procedure Date Device Type Site Unknown Unknown 05/09/24 Unknown Unknown Device Identifier Serial Number Lot or Batch Number Manufacturing Date Expiration Date Distinct Identification Code MRI Safety Implantable Status Assigning Authority Unknown Unknown [id number] Unknown 12/27/26 Unknown Unknown Active Unknown Unknown Unknown [id number] Unknown 04/02/26 Unknown Unknown Active Unknown History and physical note * MD Yao, Jordan: PERFORM, MODIFY Event Display: H&P Authored Date: [id number] Name:DEWEY BOCANEGRA Patient Number:[id number] :1940 Date of Service:05/06/2024 History of Present Illness Mr. Dewey Bocanegra a 83-year-old gentleman with a past medical historypast medical history ofprostate cancer status postand radiation therapy with concurrent ADT completed in 2020, followed closely by radiation oncology in [facility] in 2012 withsubsequent left-sidedresidual wea kness,hypertension,interstitial lung disease who had been following with Dr. Lee for nephrolithiasis, has a 1-1/2 cm stone in the right renal pelvis, they had attempted ureteroscopy though was found to have large prostate, high bladder neck, unable to find the right or right UO's on 06/29/2023. Plan at that time was made to proceed with right PCNL for management of the right-sided stone. He was waiting for right PCNLprocedureand started having right flank pain. Initial CT scan showed bilateral renal stonesbuthis current CT scan in December showed 1.3 cm rightUPJ stone obstructing right kidney. I did reviewhis CT abdomen pelvis images done djvenlu30/7/24independentlysuggestive of around 1.3 cm rightUPJ stoneobstructedwith moderate hydro nephrosis withright upper pole andlow er pole stone with left kidney stone. I was not able to calculate the exact size of it there is nosagittal or coronal images. I called him today for telehealthappointment. His daughter Shelia was also therealong with him. I did discuss above CT report with them and explained that since right kidney is obstructedand we were not able to access the right kidney retrogradely in Jun 2023 , plan will be to have right nephrostomy tube placement first by intervention radiology to drain the kidney. Then we will planright PCNL through establish access in April 2024. Steps of the procedure and complicationsincluding infection, bleeding, blood transfusion, sepsis,kidney injury, ureteric injury,stent placement, nephrostomy tube placement, blood transfusion, and utilization requirement, chest replacement case of hydrothorax pneumothorax,perioperative hospital stay, nephrostomy tube/stent/Porter catheter placement were discussed with themthey verbalized understanding agreed with the plan. He iscurrently on aspirin 81 mg. Urine culturedone [facility] 2023showed 10,000mixedgenital tad.[1] He had right nephrostomy tube placement by IR on 02/20/2024. He got admitted in the hospital after2 weeks of nephrostomy tube forUTI. He was seen today in the clinic and examined along withhis daughter. Denies for any lower urinary tract symptoms or flank pain,right nephrostomy tube draining clear urine. I did review his labs done on 03/24/2024 BUN/creatinine 20/0.78 He is being planned for PCNL procedureon 05/09/2024. I showed the CT images to them and explained thaton fluoroscopy imageI was not able to see the stone at the UPJ/right upper ureteric area. And previous CT scanare withoutcoronal or sagittalimages. So plan should be to dothe CT scanabdomen pelvis without contrastalong with CBCBMPand right nephrostomy tube urine culture.Also explained thatthe I may not be able to removestone in the upper calyx as the upper calyx isat an acute anglewith the pelvis. We .I also explained thatwe will tryto doureteroscopyretrogradefirstbutif it is not possible then we will do percutaneous procedure. Then I did discussthe steps of the procedure, complication including bleedingrequiring blood transfusion and ablation, unable to reach up to stone, cell injury to surrounding structures, chronic injury, chesttube placement in case of pneumothorax or hydr othorax.perioperative hospital stay. They verbalized understanding agreed with the plan. His repeat CTabdomen/pelvis on 04/30/2024 showed right upper calyx stone 8.5 mm, renal pelvis 13.5 mm with right nephrostomy tube in situ, left kidney stone 10.5mm in renal pelvis. So, plan wouldbe to cystoscopy, left retrograde ureteropyelogram , left stent placement, attempt right ureteroscopy ,laser lithotripsy, right open ended catheter placement, right percutaneous nephrolithotomy andright stent placement. Physical Exam General: no acute distress HEENT: moist mucous membranes, anicteric sclera, EOM intact Neck: trachea midline Cardiac: RRR Lungs: non-labored breathing, symmetric chest rise bilaterally Abdomen: soft, non-tender, non-distended Extremities: no peripheral edema Neurological: alert and oriented, no focal deficits Skin: warm and well perfused Assessment/Plan Mr. Dewey Bocanegra a 83-year-old gentleman with a past medical historypast medical history ofprostate cancer status postand radiation therapy with concurrent ADT completed in 2020, followed closely by radiation oncology in [facility] in 2012 withsubsequent left-sidedresidual wea kness,hypertension,interstitial lung disease with rightureteropelvic junction impacted stone with right nephrostomy tube in situand beingplanned for right PSBKej8905/09/2024. Steps of the procedure and complication were discussed with them as above. So, plan would be to cystoscopy, left retrograde ureteropyelogram , left stent placement, attempt right ureteroscopy ,laser lithotripsy, right open ended catheter placement, right percutaneous nephrolithotomy and right stent placement. urine culture done on mixed growth. Was started on Ciprofloxacin for 1 week and took Pyridium to identify UO intraoperatively. Today his nephrostomy bag is draining well yellow orange urine (Pyridium effect) Plan: -NPO -Antibiotics -Withhold Aspirin 7 days before Attestation I have seen and examined the patient. There are nochanges in the patients condition since the date of the original history and physical that might be significant for the planned course of treatment. We discussed the risks and benefits including, but not limited to, bleeding including the risk of transfusion and secondary procedures to control bleeding like angioembolization, infection, damageto adjacent organs including but not limited to lung, liver, spleen, or bowel, the risk of retainedstone fragments and need for subsequent secondary procedures, the need for drainage of the kidney such as a nephrostomy or stent or possible chest tube placement incase of hydro/pneumothorax, periop hospital stay withneph tube, stent and Porter.We discussed the participation of residents in surgery.He verbalized understanding , agreed with plan and signed the consent. Problem List/Past Medical History Ongoing ACTINIC KERATOSIS ALLERGIC RHINITIS Anal Fissure Back pain BPH associated with nocturia Cerumen impaction Constipation, unspecified DYSPEPSIA Elevated blood pressure Gastritis Grieving Hemiplegia and hemiparesis following cerebral infarction affecting unspecified side Infection associated with indwelling urinary catheter Interstitial pulmonary disease, unspecified Nausea Nephrolithiasis Nephrostomy status Nocturia Orthostatic syncope Personal history of skin cancer Pre-op exam Prostate cancer Recurrent depression Renal calculus Seborrheic keratosis, inflamed Tinea corporis Upper extremity pain Urticaria Ventral hernia Resolved CVA Medicare annual wellness visit, subsequent Routine adult health maintenance SHOULDER PAIN Procedure/Surgical History Lithotripsy| Service Date: 2CT of abdomen and pelvis| Service Date: 05/10/2020Excision of cataract| Service Date: 02/22/2015Shave biopsy and cauterization of skin| Service Date: 02/17/2013umbilical hernia repairEGDProstate biopsy specimenTooth extractionBrainPartial resection of colonCataract surgery Medications Inpatient ceFAZolin(Ancef), 2000 mg= 50 mL, IV, To OR Electrolyte IV Solution 1,000 mL, 1000 mL, IV Fluid Home aspirin(aspirin 81 mg oral enteric coated tablet), 81 mg= 1 tab, PO, Every other day atorvastatin(atorvastatin 10 mg oral tablet), 10 mg= 1 tab, PO, Daily, 2 refills calcium-vitamin D(calcium (as citrate)-vitamin D 250 mg-5 mcg (200 intl units) oral tablet), 1 tab,PO, bid ciprofloxacin(Cipro 500 mg oral tablet), 500 mg= 1 tab, PO, q12h FLUoxetine(FLUoxetine 20 mg oral capsule), 1 cap, PO, Daily lactulose(lactulose 10 g/15 mL oral syrup), 10 g= 15 mL, PO, Daily, PRN, 2 refills midodrine(midodrine 2.5 mg oral tablet), 2 tab, PO, tid multivitamin, 1 tab, PO, Daily ondansetron(Zofran 4 mg oral tablet), 4 mg= 1 tab, PO, q8h, PRN pantoprazole(pantoprazole 40 mg oral delayed release tablet), 1 tab, PO, Daily phenazopyridine(phenazopyridine 95 mg oral tablet), 95 mg= 1 tab, PO, bid, PRN tamSULOsin(tamsulosin 0.4 mg oral capsule), See Instructions Allergies TylenolHives VersedHives codeineHives oxycodoneVomiting, Nausea tobramycinHives Social History Smoking Status Never smoked cigarettes Alcohol - High Risk Use:Current Type:Beer Frequency:Daily - Comments: 2-3 daily Exercise - Regular exercise Exercise type:Walking Home/Environment Lives with:Spouse - Comments: Lives in a mobile home Substance Abuse - Denies Substance Abuse Tobacco - No Risk Use:Never smoker Family History Heart attack: Father and Brother. Stroke: Mother. Health Status Family Member(s) Immunizations Vaccine Date Status influenza virus vaccine, inactivated 04/04/2023 Given influenza virus vaccine, inactivated 03/14/2021 Recorded SARS-CoV-2 (COVID-19) mRNA BNT-162b2 vax 03/14/2021 Recorded SARS-CoV-2 (COVID-19) mRNA BNT-162b2 vax 07/28/2020 Recorded SARS-CoV-2 (COVID-19) mRNA BNT-162b2 vax 07/07/2020 Recorded zoster vaccine, inactivated 06/30/2019 Recorded Comments : 2021-05-02: Historical information-source unspecified pneumococcal 13-valent vaccine 02/27/2018 Given influenza virus vaccine, inactivated 02/12/2018 Given influenza virus vaccine, inactivated 02/27/2017 Recorded Comments : 2017-12-04: Historical information-source unspecified influenza virus vaccine, inactivated 02/24/2016 Recorded Comments : 2017-12-04: Historical information-source unspecified influenza virus vaccine, inactivated 02/19/2016 Recorded influenza virus vaccine, inactivated 02/17/2015 Recorded Comments : 2017-12-04: Historical information-source unspecified influenza virus vaccine, inactivated 02/04/2014 Recorded Comments : 2017-12-04: Historical information-source unspecified Lab Results Test Name Test Result Date/Time BUN 15 mg/dL 04/09/2024 10:14 EST Cret 0.80 mg/dL 04/09/2024 10:14 EST WBC 6.81 K/uL 04/09/2024 10:14 EST Hgb 14.0 g/dL 04/09/2024 10:14 EST INR 1.1 04/09/2024 10:14 EST PTT 31 seconds 04/09/2024 10:14 EST PT 14.2 seconds 04/09/2024 10:14 EST [1]Urology Office Visit Note; MD Samayoa Prabhjot 04/09/2024 10:23 EST Electronic Signature on File Electronically Reviewed/Signed by: Jordan Samayoa MD Author Signature Dt/Tm:05/09/2024 10:16 AM Urology PS * MD Shira, José Miguel: MODIFY, PERFORM, SIGN, VERIFY Event Display: Anes H&P Authored Date: [id number] Patient: DEWEY BOCANEGRA Age: 83 years Sex: Male : 1940 Associated Diagnoses: None Author: MD Shira, José Miguel Preoperative Information Pre-Operative Diagnosis: Right Kidney Stone . Anesthiesia Preop Info: Procedure: RIGID CYSTOSCOPY, RIGHT PERCUTANEOUS NEPHROLITHOTOMY, BILATERAL STENT PLACEMENT Date: 05/09/24 11:40 Surgeons: MD Samayoa Prabhjot Diagnosis: RIGHT KIDNEY STONE Procedure: RIGID CYSTOSCOPY, RIGHT PERCUTANEOUS NEPHROLITHOTOMY, BILATERAL STENT PLACEMENT Date: 05/09/24 11:40 Surgeons: MD Samayoa Prabhjot Diagnosis: Right Kidney Stone . History of Present Illness The patient presents for preanesthesia evaluation with Right Kidney Stone Vital Signs/Measurements Temperature: Heart Rate: Blood Pressure: / Height: Weight: BMI: Health Issues/Problems ACTINIC KERATOSIS ALLERGIC RHINITIS Anal Fissure Back pain BPH associated with nocturia Cerumen impaction DYSPEPSIA Elevated blood pressure Gastritis Grieving Hemiplegia and hemiparesis following cerebral infarction affecting unspecified side Infection associated with indwelling urinary catheter Interstitial pulmonary disease, unspecified Nephrolithiasis Nephrostomy status Orthostatic syncope Personal history of skin cancer Pre-op exam Prostate cancer Recurrent depression Renal calculus Seborrheic keratosis, inflamed Tinea corporis Upper extremity pain Urticaria Ventral hernia. Medical History Medical Devices: Medical Devices: none . Health Status Allergies: Allergic Reactions (Selected) Severity Not Documented Codeine- Hives. Oxycodone- Vomiting and nausea. Tobramycin- Hives. Tylenol- Hives. Versed- Hives.. Medications: Medication List (Selected) Prescriptions Prescribed Cipro 500 mg oral tablet: 1 tab, PO, q12h, Begin 1 week prior to your surgery on 05/09, 14 tab FLUoxetine 20 mg oral capsule: 1 cap, PO, Daily, 30 cap, 0 Refill(s) Zofran 4 mg oral tablet: 1 tab, PO, q8h, PRN: as needed for nausea/vomiting, 20 tab, 0 Refill(s) atorvastatin 10 mg oral tablet: 1 tab, PO, Daily, 90 tab, 2 Refill(s) lactulose 10 g/15 mL oral syrup: 15 mL, PO, Daily, PRN: as needed for constipation, 120 mL, 2 Refill(s) midodrine 2.5 mg oral tablet: 2 tab, PO, tid, 180 tab, 0 Refill(s) pantoprazole 40 mg oral delayed release tablet: 1 tab, PO, Daily, 30 tab, 0 Refill(s) phenazopyridine 95 mg oral tablet: 1 tab, PO, bid, for 1 day, Pleasae start taking one day before surgery and skip on the day of surgery. It will make the urine orange-yellow coloure, PRN: as needed for urinary discomfort, 2 tab, 0 Refill(s) tamsulosin 0.4 mg oral capsule: See Instructions, Take 1 capsule by mouth once daily, 90 cap, 2 Refill(s) Documented Medications Documented aspirin 81 mg oral enteric coated tablet: 1 tab, PO, Every other day calcium (as citrate)-vitamin D 250 mg-5 mcg (200 intl units) oral tablet: 1 tab, PO, bid multivitamin: 1 tab, PO, Daily, tab. Problem List: All Problems (Selected) ACTINIC KERATOSIS / ICD-9-CM 702.0 / Confirmed ALLERGIC RHINITIS / ICD-9-CM 477 / Confirmed Anal Fissure / ICD-9-CM 565.0 / Confirmed Back pain / ICD-9-CM 724.5 / Confirmed BPH associated with nocturia / SNOMED CT 3905516250 / Confirmed Constipation, unspecified / SNOMED CT 62371381 / Confirmed DYSPEPSIA / ICD-9-CM 536.8 / Confirmed Elevated blood pressure / SNOMED CT 722552269 / Confirmed Gastritis / ICD-9-CM 535.50 / Confirmed Grieving / SNOMED CT 195969121 / Confirmed Hemiplegia and hemiparesis following cerebral infarction affecting unspecified side / SNOMED CT 6052274947 / Confirmed Ventral hernia / SNOMED CT 0217736061 / Confirmed Cerumen impaction / SNOMED CT 45275582 / Confirmed Infection associated with indwelling urinary catheter / SNOMED CT 6756997015 / Confirmed Interstitial pulmonary disease, unspecified / SNOMED CT 807366577 / Confirmed Renal calculus / SNOMED CT 303708467 / Confirmed Prostate cancer / SNOMED CT 7221811526 / Confirmed Nausea / SNOMED CT 4902703115 / Confirmed Nephrolithiasis / ICD-9-CM 592.0 / Confirmed Nocturia / SNOMED CT 646245747 / Confirmed Pre-op exam / SNOMED CT 861367614 / Confirmed Personal history of skin cancer / SNOMED CT [id number] / Confirmed Recurrent depression / SNOMED CT 238819362 / Confirmed Seborrheic keratosis, inflamed / ICD-9-CM 702.11 / Rule out Nephrostomy status / SNOMED CT 491260688 / Confirmed Orthostatic syncope / SNOMED CT 8027858465 / Confirmed Tinea corporis / SNOMED CT 204923786 / Confirmed Upper extremity pain / ICD-9-CM 729.5 / Confirmed Urticaria / SNOMED CT [id number] / Confirmed. Histories Procedure History: Lithotripsy ([id number]) on 02/10/[address] of abdomen and pelvis ([id number]) on 05/10/2020 at 79 Years. Comments: 05/12/2020 13:07 EST - PATRICIA Patel Ashley impression: 1. 6 X 4 X 4 mm [...] small bowel 6. additional findings as above Excision of cataract ([id number]) on 02/22/2015 at 74 Years. Comments: 03/23/2015 16:50 EST - PATRICIA Marshall Jacqueline R right eye Shave biopsy and cauterization of skin ([id number]) on 02/17/2013 at 72 Years. EGD. umbilical hernia repair. Cataract surgery ([id number]). Partial resection of colon ([id number]). Brain ([id number]). Comments: 04/18/2022 15:21 EST - SHARAN Sanchez Keely brain surgery Tooth extraction ([id number]). Prostate biopsy specimen ([id number]).. Social History: Cigarrette Smoker? Other Tobacco Use: Alcohol: Recreational Drugs: . Physical Examination VS/Measurements: Reviewed Results: Vital Signs(Date Range: 05/08/2024 00:00 EST - 05/09/2024 13:54 EST) , Weight 73.6 kg. General: Alert and oriented. Airway: Mallampati classification: II (soft palate, fauces, uvula visible). Temporomandibular joint mobility: Good. Mouth: Within normal limits, Adequate opening, Dentures ( Full, Upper and lower dentures ), Teeth (Within normal limits, Edentulous ). Respiratory: Lungs are clear to auscultation, Respirations are non-labored. Cardiovascular: Normal rate, Regular rhythm. Anesthesiologist Assessment and Plan Problems: No active cardiac conditions, No previous anesthetic complications, No a/w concerns. ASA Classification: Class II. Anesthetic Plan: Anesthetic technique discussed: General anesthesia. Induction discussed: Intravenously. Airway plan discussed: Laryngeal mask airway, Oral endotracheal tube. Risks discussed: Nausea-vomiting, Headache, Sore throat, Eye injury, Allergic reaction, Serious complications, Aspiration. Informed consent: Signed by patient. History, Physical Exam, Assessment and Plan Completed: 05/09/2024 10:25:00, MD Shira, José Miguel. Review / Management Results Review: Lab results 04/09/2024 16:08 EST Urine Culture Final: 04/09/2024 11:31 EST Estimated CrCl 75.56 mL/min 04/09/2024 10:14 EST Sodium 140 mmol/L Potassium 4.2 mmol/L Chloride 104 mmol/L HCO3 23 mmol/L Anion Gap 13 mmol/L BUN 15 mg/dL Creatinine 0.80 mg/dL eGFR CKD-EPI 87 mL/min/1.73 m2 Glucose 107 mg/dL Calcium 9.9 mg/dL WBC Count 6.81 K/uL Hemoglobin 14.0 g/dL Hematocrit 42.0 % RBC Count 4.33 M/uL LOW MCV 97.0 fL HI MCHC 33.3 g/dL MCH 32.3 pg RDW 13.0 % Platelet Count 245 K/uL MPV 9.2 fL Type of Diff: AUTO Immature Gran% 0.4 % Neut% 75.0 % Lymph% 14.1 % Sierra% 7.9 % Baso% 0.3 % Eos% 2.3 % Immat Gran, Abs 0.03 K/uL Neut, Abs 5.10 K/uL Lymph, Abs 0.96 K/uL LOW Sierra, Abs 0.54 K/uL Baso, Abs 0.02 K/uL Eos, Abs 0.16 K/uL Protime INR 1.1 PTT 31 seconds Protime 14.2 seconds . Electronic Signature on File Electronically Reviewed/Signed by: José Miguel Silva MD Author Signature Dt/Tm:05/09/2024 01:55 PM Department of Anesthesia IK Surgical operation note * MD Lucrecia, Judaism: ALCIDES Samayoa MD, [facility]: MODIFY Event Display: .Operative Report Authored Date: [id number] Name:DEWEY BOCANEGRA Patient Number:[id number] :1940 Date of Service:05/09/2024 Preoperative Diagnosis Bilateral Nephrolithiasis Postoperative Diagnosis Bilateral Nephrolithiasis In Room Time 05/09/24 10:41:00 Operation Cystoscopy, right retrograde pyelogram, right ureterorenoscopy (Retrograde intrarenal surgery), laser lithotripsy, right nephrostomy tube removal, bilateral ureteral stent placement Surgeon(s) MD Yao, Jordan (Physician - Primary) Seo Expert(s) MD Miquel, Alondra Downs (Polytechnic Teacher) MD Singer Christian (Polytechnic Teacher) MD Miquel, Alondra Downs (Polytechnic Teacher) MD Singer Christian (Polytechnic Teacher) Anesthesia MD Shira, José Miguel (Primary Attending) HOLLY Sanders, Ivone Arzola (WAX ROOM SUPERVISOR) Estimated Blood Loss 10cc Urine Output On field Lines, Tubes, Drains, Tourniquets None Specimen(s) None Implants/Devices: Right 6Fr x 26cm double J ureteral stent Left 6Fr x 24cm double J ureteral stent Findings 1. Moderateprostatic hypertrophy the predominantly by lobar withhigh bladder neck 2. Moderate to severe trabeculationsthroughout the entirety of the bladder 3. Overallorthotopicureteral orifice ease though slightly difficultto visualize amongst thetrabeculations 4. All right-sidedrenal stones 14.2 mm in renal pelvis and 10mm in rightsuperior calyxdusted tofragments less than 1 mm in sizeand no ureteral stonesafter removing access sheath 5. Removal of right-sided nephrostomy tube with nohemorrhage from the tract 6. Excellent proximal and distal curls of bilateralureteral stents Complications None Indication for Surgery 83-year-old male with history of nephrolithiasis status post a previousfailed retrograde attempt at managing his stonesgiven his high bladder neck and prostatic megalywhorequired right sided percutaneous nephrostomy placementpresenting for potential PCNLon the right side. He also had p reoperative CT scan that showedanew left-sidedrenal pelvis stone. Goal is for treatment of his right sided stonespotentially through retrogradeif feasibleto prevent morbidity of PCNLas well as placement of left-sided stentto facilitateleft ureteroscopyin the future. Technique After informed consent was obtained the preoperative holding area the patient was brought back to the operative suite where general anesthesia was induced.Patient was then prepped and draped in astandard sterile fashioninDorsolithotomyposition. It was confirmed they hadreceived preoperative antibiotics. Surgical timeout was performed confirming patient, procedure, and laterality. Cystoscope was passed per urethra notingno abnormalities. Pancystoscopy showed no masses, lesions, or stones.After an thorough investigation we were able to findwhat appeared to be a trigonalridge and tracedover to the right sideand found the right ureteral orifice.Using a Glidewire through 5 Macedonian open-ended catheter we are able to intubate the orificeanda Glidewire passedinto the renal collecting system under fluoroscopic guidance.The 5 Macedonian open-ended catheter was removedand cystoscope was removed leaving the wire in place. 10Fr dual lumen catheter was passed into the mid ureterand asensor wire was passed and dual lumen removed.The glide wirewas snapped off as a safety.Over our working wire [id number] ureteral access sheathwas passed upunderfluoroscopic guidanceup to the proximal ureter. Santacruz-pyeloscopy showed 2 separate stones the largest being approximately 1.4cm in size. We then introduced out 242 micron holmium laser fiber and dustedall stone fragments to <1-2mm insize.After we were pleased with stone clearancethe nephrostomy tube was removedand the tract appeared hemostatic. The scopeand ureteral accesssheath were removed carefully inspecting the ureter finding no injuries or calculi. The scope was removed. Over our safety wire the cystoscope was passed and a [id number] stent was placedat the basedon the trajectory of the stent and it appeared that it had entered into the previous nephrostomy tract. Thus weexternalized the stent and passed a sensor wireinto the collecting system and removed the stent. A dual-lumen catheter was then passed into the mid ureter and retrograde pyelogram p erformedwhich showed that the wire was coiled in the interpolar region. We then replaced the 6 Macedonian by 26 cm double-J ureteral stentallowing for a J- hook in thecollecting systemand excellentdistal curl.Lastly given the patient's left-sided stoneand the brevity of our procedureweturned to theleft ureteral orifice which was able to be visualized after following the trigonal ridge. We intubatedthe ureteral orificeusing a Glidewire through a 5 Macedonian open-ended catheterand passed into the collecting system. Overour wire a 6 Macedonian by 24 cm double-J left ureteral stentwas placed with excellent proximal and distal curls. Bladder was drained. Scope removed. This concluded the procedure.Surgical counts were correct.Patientwas awoken fromgeneral anesthesia having tolerated itwell and taken to the postoperative recovery area. Plan: -Antibiotics -Will be discharged -Plan forright stent removal and leftUreteroscopy on 06/20. I, Dr.Prabhjot Samayoa was present,scrubbed, and actively participated in the entirety of this procedure Electronic Signature on File Electronically Reviewed/Signed by: Gilberto Singer MD Author Signature Dt/Tm:05/09/2024 12:57 PM Resident Department of Urology Electronically Reviewed/Signed by: Jordan Samayoa MD Cosigner Signature Dt/Tm: 05/09/2024 01:24 PM Urology [facility] Facility Discharge Instructions * MD Lucrecia, Judaism: ALCIDES Rojas MD, [facility]: MODIFY Event Display: Facility Discharge Instructions Authored Date: [id number] DEWEY BOCANEGRA :1940 Visit Date:05/09/2024 Facility Discharge Instructions [facility] For medical concerns, call: . Date of Admission:05/09/2024 Date of Discharge:05/09/2024 Physician:MD Samayoa Prabhjot Service:Urology Discharge Disposition: Primary Care Provider/Phone: DO HER KRISTEN M (BUSINESS) [phone] (FAX BUSINESS) . Advance Directive:Living will, Health Care Power of Tool Specialist Reason for Hospitalization Surgery My Health Patient Portal: [employer] makes it easy for you to manage your health information online. My [facility] [employer] is a free service that provides you instant, secure access to your medical information anytime, anywhere. Sign in or set up your account today at [email or web address] Thank you for allowing us to assist you with your healthcare needs. If you need additional community resources, [employer] can help at [email or web address]. 211 can assist you in connecting with social programs based on your unique needs and locations. 211 is an anonymous search that can help you locate resources for: Food, Housing, Transportation, Goods, Education and Healthcare. Hospital Course Patient underwent uneventful treatment of his right stones, removal of his right nephrostomy tube and placement of a left ureteral stent. He was deemed stable for discharge same day on 05/09 Exam on Discharge Vitals & Measurements: T:36.5C HR:90(Monitored) RR:18 BP:131/71 SpO2:96% Oxygen Therapy:Room Air WT:73.600kg(Dosing) WT:73.6kg Medications What How Much When Why Instructions Next Dose New bacitracin topical (bacitracin 500 units/ g topical ointment) 1 royce topically 2 times daily Apply to tip of penis twice daily for 1 week while healing Pickup at [facility] New ciprofloxacin (Cipro 500 mg oral tablet) 1 tab(s) by mouth Every 12 hours Continue for 1 week after surgery Pickup at [facility] New clotrimazole topical (clotrimazole 1% topical cream) 1 royce topically 2 times daily Apply to bilateral groin creases for 2 weeks. If persistent, please contact your primary care provider -Keep area dry Pickup at [facility] Unchanged aspirin (aspirin 81 mg oral enteric coated tablet) 1 tab(s) by mouth Every other day Unchanged atorvastatin (atorvastatin 10 mg oral tablet) 1 tab(s) by mouth Once daily Unchanged calcium-vitamin D (calcium (as citrate)-vitamin D 250 mg-5 mcg (200 intl units) oral tablet) 1 tab(s) by mouth 2 times daily Unchanged FLUoxetine (FLUoxetine 20 mg oral capsule) 1 cap by mouth Once daily Unchanged lactulose (lactulose 10 g/ 15 mL oral syrup) 15 Milliliter by mouth Once daily as needed for as needed for constipation Unchanged midodrine (midodrine 2.5 mg oral tablet) 2 tab(s) by mouth 3 times daily Unchanged multivitamin 1 tab(s) by mouth Once daily Unchanged ondansetron (Zofran 4 mg oral tablet) 1 tab(s) by mouth Every 8 hours as needed for as needed for nausea/vomiting Nausea BPH associated with nocturia Renal calculus Infection associated with indwelling urinary catheter Unchanged pantoprazole (pantoprazole 40 mg oral delayed release tablet) 1 tab(s) by mouth Once daily Unchanged phenazopyridine (phenazopyridine 95 mg oral tablet) 1 tab(s) by mouth 2 times daily as needed for as needed for urinary discomfort Duration: 1 Days Pleasae start taking one day before surgery and skip on the day of surgery. It will make the urine orange-yellow coloure Pickup at [facility] Unchanged tamSULOsin (tamsulosin 0.4 mg oral capsule) See instructions Take 1 capsule by mouth once daily Pharmacy Information [facility]: [address] [facility], [place] [id number] [phone] [facility] Cancer Robinson: [address] [place] [address] YURIDIA Silveira [phone] Allergies TylenolHives VersedHives codeineHives oxycodoneVomiting, Nausea tobramycinHives What to do next Instructions From Your Doctor UROLOGY CYSTOSCOPY POST-OP INSTRUCTIONS PROCEDURE: Ureteroscopy, laser lithotripsy ADDITIONAL PROCEDURES: __Ureteral stent placement bilaterally __Nephrostomy tube removal ACTIVITY: __Resume regular activities as tolerated __Avoid strenuous activity until catheter is removed __Strain urine and save stone(s) DIET: Resume your regular diet. Drink plenty of fluids to stay well-hydrated. STENT/CATHETER PLAN: __The ureteral stent will remain in place until your next procedure MEDICATIONS: Antibiotics: __Other: Ciprofloxacin [id number] medications: __Acetaminophen (Tylenol)1 g every8 hours as needed for pain Other medications: __Tamsulosin (Flomax)0.4 mg once daily PATIENT EDUCATION: If you have a ureteral stent or Porter catheter in place,it is normal to seesome blood in the urine, especially with increased activity.Staying well- hydrated willhelp improve blood in the urine.If you notice persistent blood clots in the urine or the catheter stops draining urine, call immediately. CALL IF: Fever greater than 100.4 F, intractable nausea or vomiting, or bleeding more than what is to be expected Catheter or stent dislodged Catheter clogged or not draining Increasing or uncontrolled pain Lightheadedness For non-emergent questions, you may call the Urology Office at during weekdays, between the hours of 8 AM to 4 PM Forurgenturologic problems that require immediate attention, you may call the hospital operatorat and ask to speak with the Urology resident on-call If you are unable to contact your physician and you feel it is an emergency, call 911 or go to the nearest Emergency Room Foremergent or very serious health-related issues, such as chest pain, shortness of breath, or sudden onset of the symptoms that brought you to the hospital, call 911 or go to the nearest EmergencyRoom FOLLOW UP: You will be called within the next 5 business days regarding your follow-up appointment __Please submit aurine culturetwo weeks before your scheduled procedurein order to avoid delay or cancellation of your procedure __Please obtain the following laboratory tests prior to your follow-up appointment: _ [facility] ([facility]) [address] (3rd Floor) [address] [place] [address] If you notice the following symptoms Contact the [facility] Careline at . If unable to contact your physician and you feel it is an emergency, go to the nearest Emergency Room or call 911 Diet Instructions Activity Instructions Follow-Up Appointments The Following Services Have Been Arranged for You No Post-Acute Placement(s) Listed No Post-Acute Service(s) Listed Tests Pending None Procedures Performed cysto, right URS/LL, neph tube removal, stent placement, left maribel 05/09/2024 Nursing Assessment Level of Consciousness Neuro: Alert Neurological Symptoms: None ADLS: Moderate assistance Basic Skin Assessment: [place], Warm, Dry Special Instructions Common Emergency Awareness Tips Call 911 immediately if: experiencing any of the warning signs and symptoms of stroke: B.E. F.A.S.T. Balance: is there trouble with walking or coordination Eyes: is there double vision or visual loss Face: Smile, do both sides of face move equally Arm: Raise arms, do both arms move equally Speech: Is speech slurred or inappropriate Time: Time is critical, call 911 immediately Heart Attack Signs Chest discomfort: Most heart attacks involve discomfort in the center of the chest and lasts more than a few minutes, or goes away and comes back. It can feel like uncomfortable pressure, squeezing, fullness or pain. Discomfort in upper body: Symptoms can include pain or discomfort in one or both arms, back, neck, jaw or stomach. Shortness of breath: With or without discomfort. Other signs: Breaking out in a cold sweat, nausea, or lightheaded. Remember, MINUTES DO MATTER. If you experience any of these heart attack warning signs, call to get immediate medical attention! Patient Care team information Care Team Personnel Name: DO Her Kristen M Position: Physician - Family Med Member Role: Primary Care Provider Address: [address] [place] [address] Name: Lamin Blevins Position: HIS Supervisor_P Member Role: HIS Lifetime Care Team Related Persons Name: MAGALIS SHELDON Name: SHELIA ECHAVARRIA"
[2024-05-27] MEDS: SULFAMETHOXAZOLE/TRIMETHOPRIM DS 800/160MG TAB PO SCH (19:49)
[2024-05-27] MEDS: POLYETHYLENE (MIRALAX) 17 GM PACK PO SCH (20:56)
[2024-05-27] MEDS: HEPARIN SOD 5,000 UNIT/0.5 ML VIAL SQ SCH (20:56)
[2024-05-28] MEDS: TAMSULOSIN HCL 0.4 MG CAP PO SCH (07:34)
[2024-05-28] MEDS: PANTOprazole 40 MG TAB PO SCH (07:34)
[2024-05-28] MEDS: FLUoxetine HCL 20 MG CAP PO SCH (07:34)
[2024-05-28] MEDS: ATORVASTATIN 10 MG TAB PO SCH (07:35)
[2024-05-28] MEDS: CALCITRIOL 0.25 MCG CAPSULE PO SCH (07:36)
[2024-05-28] MEDS: ASPIRIN 81 MG ECTAB PO SCH (07:36)
[2024-05-28 07:46] VITALS: BP 114/72; PULSE 66; RESP 15; TEMP 97.5
[2024-05-28 08:30] LABS: Basophils # (auto) 0.05 K/uL (0.00-0.20); Basophils % (auto) 0.7 %; Hematocrit (blood only) 35.5 % (42.0-52.0); Hemoglobin 11.8 g/dl (14.0-18.0); Immature Granulocytes # (auto) 0.02 K/uL (0.01-0.20); Immature Granulocytes % (auto) 0.3 %; Lymphocytes # (auto) 0.71 K/uL (1.20-3.40); Lymphocytes % (auto) 10.6 %; Mean Corpuscular Hemoglobin 32.2 pg (25.0-34.0); Mean Corpuscular Hgb Conc 33.2 g/dL (32.0-36.0); Mean Corpuscular Volume 96.7 fL (80.0-100.0); Mean Platelet Volume 9.5 fL (9.4-12.4); Monocytes # (auto) 0.48 K/uL (0.11-0.59); Monocytes % (auto) 7.2 %; Neutrophils # (auto) 5.25 K/uL (1.40-6.50); Neutrophils % (auto) 78.2 %; Platelet Count 263 K/uL (130-400); RDW Coefficient of Variation 13.3 % (11.5-14.5); RDW Standard Deviation 47.6 fL (36.4-46.3); Red Blood Count 3.67 M/uL (4.70-6.10); White Blood Count 6.71 K/ul (4.8-10.8)
[2024-05-28 08:43] LABS: Albumin Globulin Ratio 1.6 (0.9-2); Albumin Level 3.6 gm/dl (3.4-5.0); BUN Creatinine Ratio 23.4 (10-20); Bilirubin,Total 0.8 mg/dl (0.2-1.0); Calcium 8.6 mg/dl (8.6-10.3); Creatinine Clr Calc Pharmacy 90.4 ml/min; Globulin 2.3 gm/dl (2.5-4.0); Magnesium 1.9 mg/dl (1.7-2.4); Potassium 4.2 mmol/L (3.5-5.1); Total Protein 5.9 gm/dl (6.0-8.3)
[2024-05-28 09:20] VITALS: O2SAT 98
--- NOTE | 2024-05-28 11:03 | Discharge Summary ---
Date of Service May 28, 2024 Admission HPI Per Admitting Provider Dewey Bocanegra is a 83 year-old male with medical history significant for prostate enlargement, bilateral ureteral stents, s/p R nephrostomy tube removal, GERD, CVA who presents to the ED due to concern of left sided flank pain and weakness. He is accompanied by his daughter. Patient had R nephrostomy tube removal and lithotripsy at [facility] in April. For the past few months he has been getting weaker and having decreased appetite, daughter notes that he has lost weight due to poor intake. No known fever, endorses left flank pain and generalized weakness. Patient is scheduled for left sided ureteral stent removal at [facility] at the end of May. Daughter notes that he has also been increasingly weak/lower energy, patient uses walker to get around at home. Patient lives independently however family helps with grocery shopping, transport, etc. Daughter notes that they have discussed the possibility he may need a SNF stay after hospitalization which they are open to. ED Course: -CT A/P -CBC, CMP -IV ceftriaxone -UA, culture Admission Exam (Per Admitting) Constitutional The patient is awake, alert and oriented 3, well developed and well nourished, normocephalic and atraumatic, lying in bed and in no acute distress. HEENT--PERRL, EOMI, mucous membranes and oropharynx mildly dry Neck--supple. No JVD. No bruits. Thyroid normal, trachea midline, no adenopathy. Heart--normal S1 and S2. No murmurs, rubs or gallops. Lungs--clear bilaterally, no respiratory distress, no accessory muscle use. Abdomen--normal bowel sounds and soft. Extremities--no cyanosis or clubbing. No edema. Dermatologic--normal skin turgor, normal color, no abnormal lymph nodes, no rash. Neurologic--cranial nerves II through XII grossly intact. Rheumatologic--normal range of motion. Psychiatric--normal affect. Discharge Data Consultations 05/27/24 15:19 ED Decision to Admit Stat 05/27/24 15:41 Consult Urology Routine Hospital Course (1) Calculus of proximal left ureter: (2) Ureteral calculus, right: Plan 83-year-old gentleman status post recent right ureteroscopy and laser lithotripsy in [place], has an indwelling left ureteral stent has a second surgery scheduled for the left side on June 20 Presented to [facility] with increased left sided discomfort He is afebrile and nontoxic without a leukocytosis, UA is not particularly consistent with infection although bacteria would not be surprising given all of his recent instrumentation CT was read as suspected stent occlusion, whci the urologist disagrees with Per urology, no urological interventions needed Will treat for UTI Urged to follow up with [place] urology Outpatient Coding Level of Care Code 36436 INP/OBS DISCH >30 MIN Diagnoses Calculus of proximal left ureter N20.1 Ureteral calculus, right N20.1 Time Spent (min) 35
--- NOTE | 2024-05-28 11:50 | XRay Report ---
XR KUB/Abdomen 1 view CLINICAL HISTORY: constipation TECHNIQUE: 1 view of the abdomen was obtained. Comparison: Comparison is made to chest radiograph 03/13/2024 FINDINGS: Bilateral double-J stents are seen. Degenerative changes are seen in the visualized skeleton. The bow el gas pattern is nonobstructive. Small stool burden is seen. IMPRESSION: Small stool burden without evidence of fecal impaction. ACT 112: Negative or not required by law. Electronically signed by: Carlos Payton M.D. 05/28/2024 11:49 AM
--- NOTE | 2024-05-31 08:24 | Billing Data ---
Date of Service May 31, 2024 Coding Level of Care Code 05268 INT INP/OBS CARE
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
== END 2024-05-28 11:50 | disposition home or self-care (01) | DRG 690 ==
LOC: ED 10:56 → INTOOBSV 15:40 → 3N 15:40 → SUATTDRO 15:40 → 3N 16:45
DX: Z96.1 Presence of intraocular lens; Z88.5 Allergy status to narcotic agent; Z66 Do not resuscitate; K21.9 Gastro-esophageal reflux disease without esophagitis; F32.A Depression, unspecified; E78.5 Hyperlipidemia, unspecified; R63.0 Anorexia; N13.6 Pyonephrosis; Z88.1 Allergy status to other antibiotic agents; Z79.82 Long term (current) use of aspirin; Z86.73 Personal history of transient ischemic attack (TIA), and cerebral infarction without residual deficits; Z79.899 Other long term (current) drug therapy; Z88.8 Allergy status to other drugs, medicaments and biological substances; K59.00 Constipation, unspecified; N40.0 Benign prostatic hyperplasia without lower urinary tract symptoms